=== PATIENT | female | born 1945 | race Caucasian/White ===

== ENCOUNTER 2018-04-09 12:21 | Emergency (ER) | payer MEDICARE ==
[~2018-04-09] VITALS: Ht 154.9 cm; Wt 42.6 kg
[~2018-04-09 12:21] MED LIST: ALEVE220 M1 PO; ASA81 MG; ASPIR 8181 MG PO; COLACE100 M1 PO; CRESTOR10 MG PO; FLAGYL500 MG PO; KEFLEX500 MG PO; LEVOTHYROXINE50 MCG PO; METOPROLOL TAR100 MG PO; MILK OF MA400 MG/5 M PO; MULTI-VITAMIN1 EACH PO; NEURONTIN100 MG PO; PEPCID20 MG PO; PLAVIX75 MG PO; PREDNISONE20 MG PO; SENOKOT8.6 MG PO; ULTRAM50 MG PO; Z.0.METOPROLOL SUCC5; Z.0.NEURONTIN300 MG; Z.0.PLAVIX75 MG
[2018-04-09] MEDS ORDERED: ASPIRIN 81 MG CHEW TAB PO ONE (12:45)
[2018-04-09 12:58] LABS: BASOPHILS # (AUTO) 0.1 (0.0-0.1); BASOPHILS % 1.4 % (0.0-1.0); EOSINOPHILS # (AUTO) 0.1 (0.0-0.4); EOSINOPHILS % 1.9 % (0.0-6.0); HEMATOCRIT 28.9 % (34.2-44.1); HEMOGLOBIN 9.6 g/dL (12.0-16.0); LYMPHOCYTES # (AUTO) 1.1 (1.0-3.2); LYMPHOCYTES % 14.4 % (18.0-39.1); MEAN CORPUSCULAR HEMOGLOBIN 27.9 pg (28-32); MEAN CORPUSCULAR HGB CONC 33.2 g/dL (31-35); MONOCYTES # (AUTO) 0.9 (0.2-0.8); MONOCYTES % 11.8 % (4.4-11.3); NEUTROPHILS # (AUTO) 5.1 (2.1-6.9); PLATELET COUNT 186 x10e3/uL (140-360); RED BLOOD COUNT 3.44 x10e6/uL (3.6-5.1); RED CELL DISTRIBUTION WIDTH 18.6 % (11.7-14.4)
[2018-04-09 13:08] LABS: INR 1.11; PROTHROMBIN TIME 13.5 seconds (11.9-14.5)
[2018-04-09 13:09] LABS: PARTIAL THROMBOPLASTIN TIME 31.8 seconds (23.8-35.5)
[2018-04-09] MEDS ORDERED: ONDANSETRON HCL INJ 2 MG/ML VIAL IV STA (13:10)
[2018-04-09] MEDS ORDERED: MORPHINE SULFATE 2 MG/ML SYR IV STA (13:10)
[2018-04-09 13:16] LABS: ALANINE AMINOTRANSFERASE 28 IU/L (0-55); ALBUMIN 4.2 g/dL (3.5-5.0); ALBUMIN/GLOBULIN RATIO 1.3 (0.8-2.0); ALKALINE PHOSPHATASE 122 IU/L (40-150); ANION GAP 17.3 mmol/L (8-16); BLOOD UREA NITROGEN 5 mg/dL (7-26); BUN/CREATININE RATIO 9 (6-25); CALCIUM 9.2 mg/dL (8.4-10.2); CARBON DIOXIDE 31 mmol/L (22-29); CHLORIDE 89 mmol/L (98-107); CREATINE KINASE 96 IU/L (29-168); CREATININE, SERUM 0.55 mg/dL (0.57-1.11); EST GLOMERULAR FILTRATION RATE > 60 ML/MIN (60-); GLUCOSE 78 mg/dL (74-118); POTASSIUM 3.3 mmol/L (3.5-5.1); SODIUM 134 mmol/L (136-145)
[2018-04-09 13:24] LABS: BILIRUBIN,URINE NEGATIVE (NEGATIVE); CLARITY,URINE CLEAR (CLEAR); COLOR,URINE YELLOW (YELLOW); KETONES,URINE NEGATIVE (NEGATIVE); LEUKOCYTE ESTERASE ,URINE NEGATIVE (NEGATIVE); NITRITE,URINE NEGATIVE (NEGATIVE); PROTEIN,URINE DIPSTICK NEGATIVE (NEGATIVE); URINE UROBILINOGEN 1 mg/dL (0.2 - 1)
[2018-04-09 13:37] LABS: EPITHELIAL CELLS,URINE RARE /LPF; TRANSITIONAL EPI CELLS,URINE RARE
[2018-04-09] MEDS ORDERED: POTASSIUM CHLORIDE 20 MEQ TAB CR PO ONE (14:15)
[2018-04-09 14:21] VITALS: BP 102/84
== END 2018-04-09 14:30 | disposition home or self-care (01) ==
LOC: ER 12:21
DX: E87.6 Hypokalemia (principal); K52.9 Noninfective gastroenteritis and colitis, unspecified; Z79.82 Long term (current) use of aspirin
CPT/HCPCS: 36415; 80053; 81001; 82550; 82553; 84484; 85025; 85610; 85730; 93005; 99283; J2270; J2405

== ENCOUNTER 2018-08-21 20:03 | Inpatient (IN) | payer MEDICARE ==
[~2018-08-21] VITALS: Ht 154.9 cm; Wt 46.7 kg
--- OUTSIDE RECORDS SUMMARY | 2018-08-21 20:06 | XMS REPORT | Clinical Summary ---
Author Author FREDERIC [employer] [email or web address] Address Unknown Phone Unavailable Care Team Providers Care Head Of Marketing Analytics Name Role Phone PCP Unavailable Allergies Active Allergy Reactions Severity Noted Date Comments Hydromorphone 06/09/2014 delirium Warfarin 08/13/2018 This diagnosis of Stroke is a prior history, remote! Current Medications Prescription Sig. Disp. Refills Start End Date Status Date gabapentin (NEURONTIN) Take 100 mg by mouth 3 Active 100 MG tablet (three) times daily . IRON/FA/B12/C/DOCUSATE Take by mouth daily. Active SODIUM (FERRAPLUS 90 ORAL) polyvinyl alcohol Place 1 drop into both Active (LIQUIFILM TEARS) 1.4 % eyes 3 (three) times ophthalmic daily. solutionIndications: Dry Eye [id number]-[id number]-[id number]-lute Take by mouth. Active in (CENTRUM SILVER WOMEN) 8 mg iron-400 mcg-300 mcg Tab pantoprazole (PROTONIX) Take 40 mg by mouth Active 40 MG tablet daily. nicotine (NICODERM CQ) 21 Place 1 patch onto the Active mg/24 hr patch skin daily. clopidogrel (PLAVIX) 75 Take 75 mg by mouth Active mg tablet daily. levothyroxine (SYNTHROID, Take 1 tablet (175 mcg 360 tablet 0 08/15/20 20 Active LEVOTHROID) 175 MCG total) by mouth Every 18 19 tablet morning on an empty stomach. atorvastatin (LIPITOR) 40 Take 1 tablet (40 mg 360 tablet 0 20 08/14/20 Active MG tablet total) by mouth daily. 18 19 losartan (COZAAR) 100 MG Take 1 tablet (100 mg 360 tablet 0 20 //20 Active tablet total) by mouth daily. 18 19 amiodarone (PACERONE) 200 Take 1 tablet (200 mg 180 tablet 0 08/14/20 08/14/20 Active MG tablet total) by mouth every 18 19 other day. aspirin 81 MG EC tablet Take 81 mg by mouth 08/14/20 Discontin daily. 18 ued levothyroxine (SYNTHROID, Take 100 mcg by mouth 08/14/20 Discontin LEVOTHROID) 25 MCG tablet daily . 18 ued magnesium oxide (MAG-OX) Take 400 mg by mouth 08/14/20 Discontin 400 mg tablet daily. 18 ued budesonide (PULMICORT) Take 2 mLs (0.25 mg 60 mL 0 01/11/20 01/11/20 0.25 mg/2 mL nebulizer total) by nebulization 2 17 18 solution (two) times daily. thiamine (VITAMIN B-1) 50 Take 1 tablet (50 mg 30 tablet 11 01/11/20 01/11/20 MG tablet total) by mouth daily. 17 18 traMADol (ULTRAM) 50 mg Take 50 mg by mouth every 08/14/20 Discontin tablet 6 (six) hours as needed 18 ued for Pain. clopidogrel (PLAVIX) 75 Take 1 tablet (75 mg 30 tablet 07/24/20 07/24/20 mg tablet total) by mouth daily. 17 18 amLODIPine (NORVASC) 2.5 Take 1 tablet (2.5 mg 30 tablet 07/24/20 07/24/20 MG tablet total) by mouth daily. 17 18 Active Problems Problem Noted Date Positive cardiac stress test 08/13/2018 Alcohol intoxication, with unspecified complication ([facility]) 01/05/2017 Hypoxia 01/05/2017 Cord compression ([facility]) 01/05/2017 Withdrawal symptoms, alcohol ([facility]) 01/05/2017 Dehiscence of operative wound, initial encounter 07/19/2016 CAD (coronary artery disease) 06/12/2016 Coronary artery disease involving autologous artery coronary bypass graft 06/12/2016 without angina pectoris Unstable angina (HCC) 06/07/2016 Carotid stenosis, right 06/07/2016 TIA (transient ischemic attack) 06/07/2016 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 last use of inhaler Hypothyroidism Overview: hypothyroid Encounters Date Type Specialty Care Team Description 08/13/2018 Hospital Cardiology Woody Larsen MD - Encounter 08/14/2018 08/13/2018 Orders Only Cardiology Woody Larsen MD 08/13/2018 Procedure Pass 08/13/2018 Surgery Woody Larsen MD L CATH & CORONARY ANGIOS after 08/20/2017 Immunizations Name Dates Previously Given Next Due Influenza TIV (IM) 06/27/2014 Pneumococcal Conjugate 06/27/2014 (Prevnar) 13-Valent Pneumococcal 01/06/2017 Polysaccharide (Pneumovax) Tdap 01/20/2015 Family History Medical History Relation Name Comments Bipolar disorder Mother Diabetes Mother Heart disease Mother Relation Name Status Comments Mother Social History Tobacco Use Types Packs/Day Years Used Date Current Every Day Smoker Cigarettes 1 55 Smokeless Tobacco: Never Used Tobacco Cessation: Ready to Quit: Yes; Counseling Given: Yes Comments: previously educated Alcohol Use Drinks/Week oz/Week Comments Yes 14 Glasses of 12.6 wine 7 Cans of beer Sex Assigned at Date Recorded Not on file Last Filed Vital Signs Vital Sign Reading Time Taken Blood Pressure 105/46 08/14/2018 7:30 AM CDT Pulse 74 08/14/2018 7:30 AM CDT Temperature 36.6 C (97.8 F) 08/14/2018 7:30 AM CDT Respiratory Rate 18 08/14/2018 7:30 AM CDT Oxygen Saturation 95% 08/14/2018 7:30 AM CDT Inhaled Oxygen - - Concentration Weight 49.5 kg (109 lb 3.5 oz) 08/14/2018 7:30 AM CDT Height 154.9 cm (5' 1") 08/13/2018 10:50 AM CDT Body Mass Index 20.64 08/14/2018 7:30 AM CDT Plan of Treatment Health Maintenance Due Date Last Done Comments INFLUENZA VACCINE 07/27/2018 Implants Implanted Type Area Agricultural Commodities Inspector Device Expiration Model / Identifier Date Serial / Lot Synergy Cardiovasc N/A: Heart [place] [id number] 04/12/2020 [id number] Implanted: Qty: 1 on 08/13/2018 by [employer] [id number] / Woody Larsen MD / [id number] Sealant,Floseal Hemostatic Matrix Cement/Gilberto Bilateral: [id number] 11/26/2015 [id number] / 10ml - [id number] ler/Adhesi Back BIOSCIENCE / Implanted: Qty: 1 on 10/28/2014 by ve FORMER FUSION [id number] Kings Xiong MD MEDICAL Promus Premier Stents-Cor N/A: [place] [id number] 09/07/2018 [id number] Implanted: Qty: 1 on 07/23/2017 by PANOSOL [id number] / Woody Larsen MD / [id number] Procedures Procedure Name Priority Date/Time Associated Diagnosis Comments L CATH & CORONARY ANGIOS 08/13/2018 Atherosclerosis of [place] 3:35 PM CDT coronary artery of [place] heart without angina pectoris Case Notes POP6 L CATH POSS1 P.M. START REQUESTED after 08/20/2017 Results * EKG-SCANNED (08/17/2018 1:23 PM) * CARDIAC CATH REPORT - SCAN (08/17/2018 1:23 PM) * VASCULAR DIAGRAM -SCAN (08/17/2018 1:23 PM) * RHYTHM STRIP - SCAN (08/17/2018 1:23 PM) * CBC (Hemogram only) (08/14/2018 4:17 AM) Component Value Ref Range WBC 10.8 (H) 3.5 - 10.5 K/L RBC 2.80 (L) 3.93 - 5.22 M/L Hemoglobin 8.2 (L) 11.2 - 15.7 GM/DL Hematocrit 25.1 (L) 34.1 - 44.9 % MCV 89.6 79.4 - 94.8 fL MCH 29.3 25.6 - 32.2 pg MCHC 32.7 32.2 - 35.5 GM/DL RDW 18.4 (H) 11.7 - 14.4 % Platelets 177 150 - 450 K/CU MM MPV 10.7 9.4 - 12.3 fL nRBC 0 0 - 0 /100 WBC Specimen Performing Laboratory Blood [facility] [id number] * Basic metabolic panel (08/14/2018 4:17 AM) Component Value Ref Range Sodium 132 (L) 136 - 145 meq/L Potassium 3.0 (L) 3.5 - 5.1 meq/L Chloride 99 98 - 107 meq/L CO2 22 22 - 29 meq/L BUN 6 (L) 7 - 21 mg/dL Creatinine 0.58 0.57 - 1.25 mg/dL Glucose 86 70 - 105 mg/dL Calcium 8.1 (L) 8.4 - 10.2 mg/dL EGFR 102Comment: ESTIMATED GFR IS NOT ACCURATE mL/min/1.73 sq m CREATININE CLEARANCE IN PREDICTING GLOMERULAR FILTRATION RATE. ESTIMATED GFR IS NOT APPLICABLE FOR DIALYSIS PATIENTS. Specimen Performing Laboratory Blood [address] [id number] * POC ACTIVATED CLOTTING TIME (08/13/2018 11:10 PM) Only the most recent of 4 results within the time period is included. Component Value Ref Range Activated Clotting Time 136Comment: TESTED AT [address] [address] Specimen Performing Laboratory Blood [address] [address] after 08/20/2017
--- OUTSIDE RECORDS SUMMARY | 2018-08-21 20:06 | XMS REPORT ---
Author Author [facility] Address Unknown Phone Unavailable Care Team Providers Care Hat Binder Name Role Phone Juan FUENTES Unavailable Unavailable Paige RICE Unavailable Unavailable CECI CASTRO Unavailable Unavailable FLYNN DAMON Unavailable Unavailable Problems This patient has no known problems. Allergies, Adverse Reactions, Alerts This patient has no known allergies or adverse reactions. Medications This patient has no known medications. Results Test Description Test Time Test Comments Text Results Atomic Results Result Comments BASIC METABOLIC PANEL 2018-08-14 05:02:00 SODIUM (BEAKER) (test kfab=900) 132 meq/L 136-145 POTASSIUM (BEAKER) (test vhfe=425) 3.0 meq/L 3.5-5.1 CHLORIDE (BEAKER) (test tvdr=498) 99 meq/L 98-107 CO2 (BEAKER) (test oniv=719) 22 meq/L 22-29 BLOOD UREA NITROGEN (BEAKER) (test svzi=464) 6 mg/dL 7-21 CREATININE (BEAKER) (test crhb=983) 0.58 mg/dL 0.57-1.25 GLUCOSE RANDOM (BEAKER) (test dwkw=798) 86 mg/dL 70-105 CALCIUM (BEAKER) (test vnvv=766) 8.1 mg/dL 8.4-10.2 EGFR (BEAKER) (test qjjd=6574) 102 mL/min/1.73 sq m ESTIMATED GFR IS NOT ACCURATE CREATININE CLEARANCE IN PREDICTING GLOMERULAR FILTRATION RATE. ESTIMATED GFR IS NOT APPLICABLE FOR DIALYSIS PATIENTS. CBC (HEMOGRAM ONLY)2018-08-14 04:41:00* Test Item Value Reference Range Comments WHITE BLOOD CELL COUNT (BEAKER) (test hygm=108) 10.8 K/ L 3.5-10.5 RED BLOOD CELL COUNT (BEAKER) (test amaq=690) 2.80 M/ L 3.93-5.22 HEMOGLOBIN (BEAKER) (test uztx=405) 8.2 GM/DL 11.2-15.7 HEMATOCRIT (BEAKER) (test wgnr=603) 25.1 % 34.1-44.9 MEAN CORPUSCULAR VOLUME (BEAKER) (test nsor=188) 89.6 fL 79.4-94.8 MEAN CORPUSCULAR HEMOGLOBIN (BEAKER) (test dven=241) 29.3 pg 25.6-32.2 MEAN CORPUSCULAR HEMOGLOBIN CONC (BEAKER) (test isho=597) 32.7 GM/DL 32.2-35.5 RED CELL DISTRIBUTION WIDTH (BEAKER) (test ovsf=549) 18.4 % 11.7-14.4 PLATELET COUNT (BEAKER) (test gcrg=658) 177 K/CU MM 150-450 MEAN PLATELET VOLUME (BEAKER) (test buar=451) 10.7 fL 9.4-12.3 NUCLEATED RED BLOOD CELLS (BEAKER) (test zmvb=639) 0 /100 WBC 0-0 [id number] 23:16:00* Test Item Value Reference Range Comments ACTIVATED CLOTTING TIME (BEAKER) (test qdgx=336) 136 sec TESTED AT [place] [address] [id number] 22:09:00* Test Item Value Reference Range Comments ACTIVATED CLOTTING TIME (BEAKER) (test ibej=934) 153 sec TESTED AT [place] [id number] 20:54:00* Test Item Value Reference Range Comments ACTIVATED CLOTTING TIME (BEAKER) (test pklo=619) 158 sec TESTED AT [place] [id number] 15:59:00* Test Item Value Reference Range Comments ACTIVATED CLOTTING TIME (BEAKER) (test kssm=824) 252 sec TESTED AT [place] [id number] CT, [id number] 18:20:00Reason for exam:->ABDOMINAL PAIN, RLQ abd pain and pelvis painReason for exam:->recent cardiac cath with entry on R groin.What is the patient's sedation requirement?->No SedationFINAL REPORT DOSE REDUCTION: The examination was performed according to departmental dose-optimization program which includes automated exposure control, adjustment of the mA and/or kV according to patient size and/or use of iterative reconstruction technique. TECHNIQUE: CT of the abdomen and pelvis with intravenous contrast. COMPARISON: CT of the pelvis, 01/05/2017 Discussion: Lung bases are clear. There is diffusely decreased liver density suggestive of fatty infiltration. Punctate liver and splenic calcifications are seen. There is a vascular focus in the left hepatic lobe measuring about 12 mm. This may rep resent a small vascular shunt or other benign entity. Spleen and adrenal glands appear unremarkable. The gallbladder and biliary tree are unremarkable. Both kid neys appear unremarkable. Duplicated right renal collecting system noted. There is colonic diverticulosis. No findings of diverticulitis. Moderate amount of sto ol throughout the colon seen. The appendix is not well visualized. However there is no inflammatory stranding or fluid collection in the right lower quadrant to suggest the presence of appendicitis. There is a small amount of pelvic free fluid. No organized fluid collections or abscess. No gross hematoma. Extensive v ascular calcifications are seen. Aorta and IVC are normal in caliber. No signifi cant lymphadenopathy. Mild stranding in the groin regions noted, nonspecific. No groin hematomas. IMPRESSION: 1. No definite acute abnormality in the abdomen and pelvis. 2. Moderate amount of stool throughout the colon. Scattered colonic di verticula without findings of diverticulitis. 3. Trace pelvic free fluid. 4. Ext ensive vascular calcifications. 5. Nonspecific vascular focus in the left hepati c lobe most likely benign. This could be assessed with nonemergent liver protoco l MRI. Signed: Messi Richard MDReport Verified Date/Time: 07/30/2017 18:20:15 Alma salgado Location: [facility] [id number] Consult Reading Room ALYSIS W/ [id number] 15:39:00* Test Item Value Reference Range Comments COLOR (BEAKER) (test ffhj=967) Light Yellow CLARITY (BEAKER) (test beqq=268) Clear SPECIFIC GRAVITY UA (BEAKER) (test jwjf=900) 1.002 1.001-1.035 PH UA (BEAKER) (test tcms=667) 7.0 5.0-8.0 PROTEIN UA (BEAKER) (test fzwo=350) Negative Negative GLUCOSE UA (BEAKER) (test bkdz=474) Negative Negative KETONES UA (BEAKER) (test cxij=389) Negative Negative BILIRUBIN UA (BEAKER) (test zwec=233) Negative Negative BLOOD UA (BEAKER) (test rpac=740) Negative Negative NITRITE UA (BEAKER) (test lqck=484) Negative Negative LEUKOCYTE ESTERASE UA (BEAKER) (test oebe=931) Negative Negative UROBILINOGEN UA (BEAKER) (test ikuf=549) 0.2 mg/dL 0.2-1.0 RBC UA (BEAKER) (test unmz=966) < /HPF WBC UA (BEAKER) (test ahmf=865) < /HPF SOURCE(BEAKER) (test xven=6482) CREATINE KINASE (CK), TOTAL AND [id number] 15:24:00* Test Item Value Reference Range Comments CREATINE KINASE TOTAL (BEAKER) (test oyxr=572) 45 U/L 29-200 CREATINE KINASE-MB (BEAKER) (test izzy=846) 1.7 ng/mL 0.0-6.6 CREATINE KINASE-MB INDEX (BEAKER) (test mylf=927) 3.8 % CK-MB Reference Range:<6.7 Normal6.7-10.0 Borderline>10.0 Abnormal TROPONIN [id number] 15:24:00* Test Item Value Reference Range Comments TROPONIN I (BEAKER) (test sfkv=719) 0.01 ng/mL 0.00-0.03 Troponin I (TnI) levels must be interpreted in the context of the presenting sym ptoms and the clinical findings. Elevated TnI levels indicate myocardial damage, but are not specific for ischemic heart disease. Elevated TnI levels are seen in patients with other cardiac conditions (including myocarditis and congestive h eart failure), and slight TnI elevations occur in patients with other conditions , including sepsis, renal failure, acidosis, acute neurological disease, and per sistent tachyarrhythmia.[id number] 15:17:00* Test Item Value Reference Range Comments LIPASE (BEAKER) (test zztl=907) 5 U/L 8-78 BASIC METABOLIC [id number] 15:17:00* Test Item Value Reference Range Comments SODIUM (BEAKER) (test qida=308) 135 meq/L 136-145 POTASSIUM (BEAKER) (test beao=082) 3.2 meq/L 3.5-5.1 CHLORIDE (BEAKER) (test zxqo=925) 97 meq/L 98-107 CO2 (BEAKER) (test ermj=272) 27 meq/L 22-29 BLOOD UREA NITROGEN (BEAKER) (test oifs=480) 4 mg/dL 7-21 CREATININE (BEAKER) (test vjek=275) 0.51 mg/dL 0.57-1.25 GLUCOSE RANDOM (BEAKER) (test ojek=901) 72 mg/dL 70-105 CALCIUM (BEAKER) (test sjev=617) 8.6 mg/dL 8.4-10.2 EGFR (BEAKER) (test orcf=7888) 118 mL/min/1.73 sq m ESTIMATED GFR IS NOT ACCURATE CREATININE CLEARANCE IN PREDICTING GLOMERULAR FILTRATION RATE. ESTIMATED GFR IS NOT APPLICABLE FOR DIALYSIS PATIENTS. HEPATIC FUNCTION [id number] 15:17:00* Test Item Value Reference Range Comments TOTAL PROTEIN (BEAKER) (test rfib=808) 6.5 gm/dL 6.0-8.3 ALBUMIN (BEAKER) (test vjbg=7972) 3.7 g/dL 3.5-5.0 BILIRUBIN TOTAL (BEAKER) (test bkok=865) 0.6 mg/dL 0.2-1.2 BILIRUBIN DIRECT (BEAKER) (test xhll=680) 0.4 mg/dL 0.1-0.5 ALKALINE PHOSPHATASE (BEAKER) (test stsh=904) 120 U/L 40-150 AST (SGOT) (BEAKER) (test kqok=709) 56 U/L 5-34 ALT (SGPT) (BEAKER) (test asie=141) 21 U/L 6-55 CBC W/PLT COUNT & AUTO [id number] 15:00:00* Test Item Value Reference Range Comments WHITE BLOOD CELL COUNT (BEAKER) (test lnin=649) 3.6 K/ L 3.5-10.5 RED BLOOD CELL COUNT (BEAKER) (test fogx=414) 3.39 M/ L 3.93-5.22 HEMOGLOBIN (BEAKER) (test pajv=944) 10.9 GM/DL 11.2-15.7 HEMATOCRIT (BEAKER) (test ifhx=220) 32.4 % 34.1-44.9 MEAN CORPUSCULAR VOLUME (BEAKER) (test yfwd=453) 95.6 fL 79.4-94.8 MEAN CORPUSCULAR HEMOGLOBIN (BEAKER) (test ecdi=900) 32.2 pg 25.6-32.2 MEAN CORPUSCULAR HEMOGLOBIN CONC (BEAKER) (test fzku=300) 33.6 GM/DL 32.2-35.5 RED CELL DISTRIBUTION WIDTH (BEAKER) (test xoqw=160) 15.2 % 11.7-14.4 PLATELET COUNT (BEAKER) (test rxcm=776) 196 K/CU MM 150-450 MEAN PLATELET VOLUME (BEAKER) (test utxm=830) 10.2 fL 9.4-12.3 NUCLEATED RED BLOOD CELLS (BEAKER) (test uvgt=586) 0 /100 WBC 0-0 NEUTROPHILS RELATIVE PERCENT (BEAKER) (test hjig=206) 65 % LYMPHOCYTES RELATIVE PERCENT (BEAKER) (test cbpa=746) 18 % MONOCYTES RELATIVE PERCENT (BEAKER) (test ymxx=990) 11 % EOSINOPHILS RELATIVE PERCENT (BEAKER) (test dera=736) 4 % BASOPHILS RELATIVE PERCENT (BEAKER) (test bncx=643) 1 % NEUTROPHILS ABSOLUTE COUNT (BEAKER) (test goba=776) 2.35 K/ L 1.56-6.13 LYMPHOCYTES ABSOLUTE COUNT (BEAKER) (test vmga=081) 0.66 K/ L 1.18-3.74 MONOCYTES ABSOLUTE COUNT (BEAKER) (test hafp=605) 0.41 K/ L 0.24-0.36 EOSINOPHILS ABSOLUTE COUNT (BEAKER) (test ryeu=745) 0.13 K/ L 0.04-0.36 BASOPHILS ABSOLUTE COUNT (BEAKER) (test phfs=299) 0.04 K/ L 0.01-0.08 IMMATURE GRANULOCYTES-RELATIVE PERCENT (BEAKER) (test moig=1263) 0 % 0-1 CBC W/PLT COUNT & AUTO [id number] 11:08:00* Test Item Value Reference Range Comments WHITE BLOOD CELL COUNT (BEAKER) (test task=408) 5.2 K/ L 3.5-10.5 RED BLOOD CELL COUNT (BEAKER) (test ycfx=465) 3.50 M/ L 3.93-5.22 HEMOGLOBIN (BEAKER) (test ncey=131) 11.3 GM/DL 11.2-15.7 HEMATOCRIT (BEAKER) (test lygv=261) 34.5 % 34.1-44.9 MEAN CORPUSCULAR VOLUME (BEAKER) (test ruag=966) 98.6 fL 79.4-94.8 MEAN CORPUSCULAR HEMOGLOBIN (BEAKER) (test mrss=015) 32.3 pg 25.6-32.2 MEAN CORPUSCULAR HEMOGLOBIN CONC (BEAKER) (test wjyb=646) 32.8 GM/DL 32.2-35.5 RED CELL DISTRIBUTION WIDTH (BEAKER) (test nwdd=432) 15.2 % 11.7-14.4 PLATELET COUNT (BEAKER) (test xhbj=552) 126 K/CU MM 150-450 MEAN PLATELET VOLUME (BEAKER) (test ytxs=410) 11.0 fL 9.4-12.3 NUCLEATED RED BLOOD CELLS (BEAKER) (test ytsi=145) 0 /100 WBC 0-0 NEUTROPHILS RELATIVE PERCENT (BEAKER) (test iuno=112) 74 % LYMPHOCYTES RELATIVE PERCENT (BEAKER) (test ripl=577) 13 % MONOCYTES RELATIVE PERCENT (BEAKER) (test pyck=292) 9 % EOSINOPHILS RELATIVE PERCENT (BEAKER) (test opbd=609) 4 % BASOPHILS RELATIVE PERCENT (BEAKER) (test esaa=931) 0 % NEUTROPHILS ABSOLUTE COUNT (BEAKER) (test yniu=188) 3.83 K/ L 1.56-6.13 LYMPHOCYTES ABSOLUTE COUNT (BEAKER) (test htig=246) 0.69 K/ L 1.18-3.74 MONOCYTES ABSOLUTE COUNT (BEAKER) (test ofia=107) 0.44 K/ L 0.24-0.36 EOSINOPHILS ABSOLUTE COUNT (BEAKER) (test kpmd=720) 0.18 K/ L 0.04-0.36 BASOPHILS ABSOLUTE COUNT (BEAKER) (test nmtw=009) 0.02 K/ L 0.01-0.08 IMMATURE GRANULOCYTES-RELATIVE PERCENT (BEAKER) (test swyy=2941) 0 % 0-1 [id number] 04:28:00* Test Item Value Reference Range Comments PHOSPHORUS (BEAKER) (test pupi=776) 2.5 mg/dL 2.3-4.7 [id number] 04:28:00* Test Item Value Reference Range Comments MAGNESIUM (BEAKER) (test pakl=016) 1.8 mg/dL 1.6-2.6 BASIC METABOLIC [id number] 04:28:00* Test Item Value Reference Range Comments SODIUM (BEAKER) (test vydz=033) 133 meq/L 136-145 POTASSIUM (BEAKER) (test ksww=959) 4.4 meq/L 3.5-5.1 CHLORIDE (BEAKER) (test lpgr=959) 95 meq/L 98-107 CO2 (BEAKER) (test obcz=565) 31 meq/L 22-29 BLOOD UREA NITROGEN (BEAKER) (test wdoo=575) 4 mg/dL 7-21 CREATININE (BEAKER) (test macq=200) 0.51 mg/dL 0.57-1.25 GLUCOSE RANDOM (BEAKER) (test ehfe=833) 76 mg/dL 70-105 CALCIUM (BEAKER) (test xfma=091) 8.4 mg/dL 8.4-10.2 EGFR (BEAKER) (test aqet=5217) 118 mL/min/1.73 sq m ESTIMATED GFR IS NOT ACCURATE CREATININE CLEARANCE IN PREDICTING GLOMERULAR FILTRATION RATE. ESTIMATED GFR IS NOT APPLICABLE FOR DIALYSIS PATIENTS. [id number] 17:36:00* Test Item Value Reference Range Comments ACTIVATED CLOTTING TIME (BEAKER) (test kxhn=004) [address] [facility] [address] [facility] [address] [id number] 05:49:00* Test Item Value Reference Range Comments PHOSPHORUS (BEAKER) (test ybaj=700) 3.7 mg/dL 2.3-4.7 [id number] 05:49:00* Test Item Value Reference Range Comments MAGNESIUM (BEAKER) (test cwts=905) 1.3 mg/dL 1.6-2.6 BASIC METABOLIC [id number] 05:49:00* Test Item Value Reference Range Comments SODIUM (BEAKER) (test bxjt=129) 133 meq/L 136-145 POTASSIUM (BEAKER) (test agpu=391) 3.3 meq/L 3.5-5.1 CHLORIDE (BEAKER) (test wjdz=688) 92 meq/L 98-107 CO2 (BEAKER) (test mpql=309) 32 meq/L 22-29 BLOOD UREA NITROGEN (BEAKER) (test efsr=052) 4 mg/dL 7-21 CREATININE (BEAKER) (test pfca=947) 0.47 mg/dL 0.57-1.25 GLUCOSE RANDOM (BEAKER) (test acqt=423) 69 mg/dL 70-105 CALCIUM (BEAKER) (test rpzr=418) 8.0 mg/dL 8.4-10.2 EGFR (BEAKER) (test nzox=7582) 130 mL/min/1.73 sq m ESTIMATED GFR IS NOT ACCURATE CREATININE CLEARANCE IN PREDICTING GLOMERULAR FILTRATION RATE. ESTIMATED GFR IS NOT APPLICABLE FOR DIALYSIS PATIENTS. CBC W/PLT COUNT & AUTO [id number] 05:23:00* Test Item Value Reference Range Comments WHITE BLOOD CELL COUNT (BEAKER) (test ipbt=871) 4.4 K/ L 3.5-10.5 RED BLOOD CELL COUNT (BEAKER) (test rlvr=722) 3.39 M/ L 3.93-5.22 HEMOGLOBIN (BEAKER) (test akac=154) 10.9 GM/DL 11.2-15.7 HEMATOCRIT (BEAKER) (test ickk=353) 32.4 % 34.1-44.9 MEAN CORPUSCULAR VOLUME (BEAKER) (test eele=512) 95.6 fL 79.4-94.8 MEAN CORPUSCULAR HEMOGLOBIN (BEAKER) (test gjze=427) 32.2 pg 25.6-32.2 MEAN CORPUSCULAR HEMOGLOBIN CONC (BEAKER) (test mqki=821) 33.6 GM/DL 32.2-35.5 RED CELL DISTRIBUTION WIDTH (BEAKER) (test sumi=525) 15.1 % 11.7-14.4 PLATELET COUNT (BEAKER) (test otxi=208) 122 K/CU MM 150-450 MEAN PLATELET VOLUME (BEAKER) (test zpvc=418) 9.9 fL 9.4-12.3 NUCLEATED RED BLOOD CELLS (BEAKER) (test ruhf=754) 0 /100 WBC 0-0 NEUTROPHILS RELATIVE PERCENT (BEAKER) (test nnxn=876) 72 % LYMPHOCYTES RELATIVE PERCENT (BEAKER) (test falq=628) 12 % MONOCYTES RELATIVE PERCENT (BEAKER) (test qmgo=375) 10 % EOSINOPHILS RELATIVE PERCENT (BEAKER) (test rugw=160) 5 % BASOPHILS RELATIVE PERCENT (BEAKER) (test edjb=044) 1 % NEUTROPHILS ABSOLUTE COUNT (BEAKER) (test ticd=039) 3.17 K/ L 1.56-6.13 LYMPHOCYTES ABSOLUTE COUNT (BEAKER) (test kjqq=838) 0.51 K/ L 1.18-3.74 MONOCYTES ABSOLUTE COUNT (BEAKER) (test sbhs=769) 0.44 K/ L 0.24-0.36 EOSINOPHILS ABSOLUTE COUNT (BEAKER) (test wodw=584) 0.20 K/ L 0.04-0.36 BASOPHILS ABSOLUTE COUNT (BEAKER) (test ipeu=032) 0.02 K/ L 0.01-0.08 IMMATURE GRANULOCYTES-RELATIVE PERCENT (BEAKER) (test cciy=9348) 1 % 0-1 CSF CULTURE + GRAM [id number] 01:17:00* Test Item Value Reference Range Comments CULTURE (BEAKER) (test soun=6874) No growth GRAM STAIN RESULT (BEAKER) (test avqd=7282) <1+ WBCs GRAM STAIN RESULT (BEAKER) (test xqaz=00619) No organisms seen BASIC METABOLIC [id number] 06:45:00* Test Item Value Reference Range Comments SODIUM (BEAKER) (test yvgg=323) 131 meq/L 136-145 POTASSIUM (BEAKER) (test pmqe=831) 3.7 meq/L 3.5-5.1 CHLORIDE (BEAKER) (test bddq=879) 98 meq/L 98-107 CO2 (BEAKER) (test zjyk=740) 22 meq/L 22-29 BLOOD UREA NITROGEN (BEAKER) (test fhic=673) 6 mg/dL 7-21 CREATININE (BEAKER) (test ymmo=654) 0.52 mg/dL 0.57-1.25 GLUCOSE RANDOM (BEAKER) (test owrt=203) 84 mg/dL 70-105 CALCIUM (BEAKER) (test gtlf=584) 8.4 mg/dL 8.4-10.2 EGFR (BEAKER) (test akwg=3877) 116 mL/min/1.73 sq m ESTIMATED GFR IS NOT ACCURATE CREATININE CLEARANCE IN PREDICTING GLOMERULAR FILTRATION RATE. ESTIMATED GFR IS NOT APPLICABLE FOR DIALYSIS PATIENTS. CBC W/PLT COUNT & AUTO [id number] 05:26:00* Test Item Value Reference Range Comments WHITE BLOOD CELL COUNT (BEAKER) (test rbuf=685) 7.8 K/ L 4.0-10.0 RED BLOOD CELL COUNT (BEAKER) (test wvte=614) 3.48 M/ L 4.00-5.00 HEMOGLOBIN (BEAKER) (test bnre=979) 12.6 GM/DL 12.0-15.0 HEMATOCRIT (BEAKER) (test kqvf=217) 36.0 % 36.0-45.0 MEAN CORPUSCULAR VOLUME (BEAKER) (test bnvf=847) 103.0 fL 82.0-99.0 MEAN CORPUSCULAR HEMOGLOBIN (BEAKER) (test gpsm=981) 36.1 pg 27.0-33.0 MEAN CORPUSCULAR HEMOGLOBIN CONC (BEAKER) (test tpxe=272) 34.9 GM/DL 32.0-36.0 RED CELL DISTRIBUTION WIDTH (BEAKER) (test bsbl=580) 13.6 % 10.3-14.2 PLATELET COUNT (BEAKER) (test jqqw=234) 161 K/CU MM 150-430 MEAN PLATELET VOLUME (BEAKER) (test zylc=005) 7.3 fL 6.5-10.5 NUCLEATED RED BLOOD CELLS (BEAKER) (test nvfw=398) 0 /100 WBC 0-0 NEUTROPHILS RELATIVE PERCENT (BEAKER) (test jomu=762) 80 % LYMPHOCYTES RELATIVE PERCENT (BEAKER) (test zkaf=512) 8 % MONOCYTES RELATIVE PERCENT (BEAKER) (test lltl=021) 11 % EOSINOPHILS RELATIVE PERCENT (BEAKER) (test rjxx=257) 1 % BASOPHILS RELATIVE PERCENT (BEAKER) (test iamx=024) 0 % NEUTROPHILS ABSOLUTE COUNT (BEAKER) (test evbc=352) 6.27 K/ L 1.80-8.00 LYMPHOCYTES ABSOLUTE COUNT (BEAKER) (test ntts=509) 0.62 K/ L 1.48-4.50 MONOCYTES ABSOLUTE COUNT (BEAKER) (test sbmz=024) 0.85 K/ L 0.00-1.30 EOSINOPHILS ABSOLUTE COUNT (BEAKER) (test oxkf=218) 0.06 K/ L 0.00-0.50 BASOPHILS ABSOLUTE COUNT (BEAKER) (test cqcq=925) 0.01 K/ L 0.00-0.20 0.00BASIC METABOLIC [id number] 05:31:00* Test Item Value Reference Range Comments SODIUM (BEAKER) (test cvpf=697) 134 meq/L 136-145 POTASSIUM (BEAKER) (test mjtb=713) 3.8 meq/L 3.5-5.1 CHLORIDE (BEAKER) (test yvui=177) 103 meq/L 98-107 CO2 (BEAKER) (test gquf=547) 21 meq/L 22-29 BLOOD UREA NITROGEN (BEAKER) (test yono=625) 5 mg/dL 7-21 CREATININE (BEAKER) (test rlul=709) 0.54 mg/dL 0.57-1.25 GLUCOSE RANDOM (BEAKER) (test xoex=047) 84 mg/dL 70-105 CALCIUM (BEAKER) (test rbva=622) 8.5 mg/dL 8.4-10.2 EGFR (BEAKER) (test bwiw=5191) 111 mL/min/1.73 sq m ESTIMATED GFR IS NOT ACCURATE CREATININE CLEARANCE IN PREDICTING GLOMERULAR FILTRATION RATE. ESTIMATED GFR IS NOT APPLICABLE FOR DIALYSIS PATIENTS. CBC W/PLT COUNT & AUTO [id number] 05:05:00* Test Item Value Reference Range Comments WHITE BLOOD CELL COUNT (BEAKER) (test yasj=859) 9.6 K/ L 4.0-10.0 RED BLOOD CELL COUNT (BEAKER) (test nowj=559) 3.48 M/ L 4.00-5.00 HEMOGLOBIN (BEAKER) (test axhh=072) 12.3 GM/DL 12.0-15.0 HEMATOCRIT (BEAKER) (test dogo=608) 36.8 % 36.0-45.0 MEAN CORPUSCULAR VOLUME (BEAKER) (test vkbb=677) 106.0 fL 82.0-99.0 MEAN CORPUSCULAR HEMOGLOBIN (BEAKER) (test rkdc=461) 35.3 pg 27.0-33.0 MEAN CORPUSCULAR HEMOGLOBIN CONC (BEAKER) (test gahh=767) 33.4 GM/DL 32.0-36.0 RED CELL DISTRIBUTION WIDTH (BEAKER) (test yhwx=147) 12.3 % 10.3-14.2 PLATELET COUNT (BEAKER) (test pvgx=300) 179 K/CU MM 150-430 MEAN PLATELET VOLUME (BEAKER) (test vtuz=110) 7.3 fL 6.5-10.5 NUCLEATED RED BLOOD CELLS (BEAKER) (test lpgb=669) 0 /100 WBC 0-0 NEUTROPHILS RELATIVE PERCENT (BEAKER) (test nsng=171) 82 % LYMPHOCYTES RELATIVE PERCENT (BEAKER) (test pxlz=821) 7 % MONOCYTES RELATIVE PERCENT (BEAKER) (test kfao=292) 10 % EOSINOPHILS RELATIVE PERCENT (BEAKER) (test rmhs=966) 1 % BASOPHILS RELATIVE PERCENT (BEAKER) (test dliz=111) 0 % NEUTROPHILS ABSOLUTE COUNT (BEAKER) (test ltcf=544) 7.83 K/ L 1.80-8.00 LYMPHOCYTES ABSOLUTE COUNT (BEAKER) (test qsap=912) 0.70 K/ L 1.48-4.50 MONOCYTES ABSOLUTE COUNT (BEAKER) (test etht=298) 0.93 K/ L 0.00-1.30 EOSINOPHILS ABSOLUTE COUNT (BEAKER) (test yfac=727) 0.09 K/ L 0.00-0.50 BASOPHILS ABSOLUTE COUNT (BEAKER) (test utsz=040) 0.04 K/ L 0.00-0.20 0.00VDRL, [id number] 15:43:00* Test Item Value Reference Range Comments SYPHILIS VDRL QUANTITATION CSF (BEAKER) (test exci=640) Nonreactive Nonreactive CBC W/PLT COUNT & AUTO [id number] 07:05:00* Test Item Value Reference Range Comments WHITE BLOOD CELL COUNT (BEAKER) (test epli=041) 10.1 K/ L 4.0-10.0 RED BLOOD CELL COUNT (BEAKER) (test egza=653) 3.36 M/ L 4.00-5.00 HEMOGLOBIN (BEAKER) (test kbeo=178) 11.7 GM/DL 12.0-15.0 HEMATOCRIT (BEAKER) (test glor=227) 35.6 % 36.0-45.0 MEAN CORPUSCULAR VOLUME (BEAKER) (test unmn=150) 106.0 fL 82.0-99.0 MEAN CORPUSCULAR HEMOGLOBIN (BEAKER) (test wzev=526) 34.9 pg 27.0-33.0 MEAN CORPUSCULAR HEMOGLOBIN CONC (BEAKER) (test tebo=264) 33.0 GM/DL 32.0-36.0 RED CELL DISTRIBUTION WIDTH (BEAKER) (test gqmb=259) 12.3 % 10.3-14.2 PLATELET COUNT (BEAKER) (test jysw=054) 187 K/CU MM 150-430 MEAN PLATELET VOLUME (BEAKER) (test ethp=259) 7.2 fL 6.5-10.5 NUCLEATED RED BLOOD CELLS (BEAKER) (test rzja=107) 0 /100 WBC 0-0 NEUTROPHILS RELATIVE PERCENT (BEAKER) (test bxnh=313) 93 % LYMPHOCYTES RELATIVE PERCENT (BEAKER) (test awvc=665) 3 % MONOCYTES RELATIVE PERCENT (BEAKER) (test ztig=274) 4 % EOSINOPHILS RELATIVE PERCENT (BEAKER) (test tjkd=232) 0 % BASOPHILS RELATIVE PERCENT (BEAKER) (test hzos=695) 0 % NEUTROPHILS ABSOLUTE COUNT (BEAKER) (test thak=698) 9.42 K/ L 1.80-8.00 LYMPHOCYTES ABSOLUTE COUNT (BEAKER) (test jyxi=212) 0.31 K/ L 1.48-4.50 MONOCYTES ABSOLUTE COUNT (BEAKER) (test duoh=380) 0.36 K/ L 0.00-1.30 EOSINOPHILS ABSOLUTE COUNT (BEAKER) (test dvdo=806) 0.04 K/ L 0.00-0.50 BASOPHILS ABSOLUTE COUNT (BEAKER) (test kevb=455) 0.00 K/ L 0.00-0.20 0.00BASIC METABOLIC [id number] 06:05:00* Test Item Value Reference Range Comments SODIUM (BEAKER) (test kyes=481) 132 meq/L 136-145 POTASSIUM (BEAKER) (test rqnx=184) 4.4 meq/L 3.5-5.1 CHLORIDE (BEAKER) (test ditn=972) 100 meq/L 98-107 CO2 (BEAKER) (test seep=810) 21 meq/L 22-29 BLOOD UREA NITROGEN (BEAKER) (test lrbx=709) 4 mg/dL 7-21 CREATININE (BEAKER) (test zvho=933) 0.53 mg/dL 0.57-1.25 GLUCOSE RANDOM (BEAKER) (test gmrk=090) 142 mg/dL 70-105 CALCIUM (BEAKER) (test solo=407) 8.7 mg/dL 8.4-10.2 EGFR (BEAKER) (test vzbi=7681) 113 mL/min/1.73 sq m ESTIMATED GFR IS NOT ACCURATE CREATININE CLEARANCE IN PREDICTING GLOMERULAR FILTRATION RATE. ESTIMATED GFR IS NOT APPLICABLE FOR DIALYSIS PATIENTS. GLUCOSE, [id number] 14:44:00* Test Item Value Reference Range Comments GLUCOSE CSF (BEAKER) (test zpoy=907) 105 mg/dL 40-70 PROTEIN, [id number] 14:44:00* Test Item Value Reference Range Comments PROTEIN CSF (BEAKER) (test wsdc=099) 105 mg/dL 15-45 CSF CELL COUNT [id number] 14:33:00* Test Item Value Reference Range Comments APPEARANCE CSF (BEAKER) (test jqky=291) Clear Clear COLOR CSF (BEAKER) (test djzk=602) Colorless Colorless RBC CSF (BEAKER) (test ljwg=258) 0 /cu mm 0-5 WBC CSF (BEAKER) (test jsko=0401) 0 /cu mm <=5 RBCS FRESH (BEAKER) (test bxuv=9659) Not Applicable NUMBER OF CELLS DIFF'D (BEAKER) (test cyde=6531) 0 TUBE NUMBER CSF (BEAKER) (test qmss=8468) EDTA tube BASIC METABOLIC [id number] 06:09:00* Test Item Value Reference Range Comments SODIUM (BEAKER) (test hwkz=267) 135 meq/L 136-145 POTASSIUM (BEAKER) (test gnhz=393) 4.3 meq/L 3.5-5.1 CHLORIDE (BEAKER) (test qqru=669) 100 meq/L 98-107 CO2 (BEAKER) (test dhjr=338) 25 meq/L 22-29 BLOOD UREA NITROGEN (BEAKER) (test uacj=278) 4 mg/dL 7-21 CREATININE (BEAKER) (test wsxv=152) 0.55 mg/dL 0.57-1.25 GLUCOSE RANDOM (BEAKER) (test mtnm=138) 188 mg/dL 70-105 CALCIUM (BEAKER) (test acpc=847) 8.9 mg/dL 8.4-10.2 EGFR (BEAKER) (test jnav=0495) 109 mL/min/1.73 sq m ESTIMATED GFR IS NOT ACCURATE CREATININE CLEARANCE IN PREDICTING GLOMERULAR FILTRATION RATE. ESTIMATED GFR IS NOT APPLICABLE FOR DIALYSIS PATIENTS. PROTHROMBIN [id number] 05:24:00* Test Item Value Reference Range Comments PROTIME (BEAKER) (test dclh=381) 12.5 seconds 11.7-14.7 INR (BEAKER) (test jrfs=406) 0.9 <=5.9 RECOMMENDED COUMADIN/WARFARIN INR THERAPY RANGESSTANDARD DOSE: 2.0 - 3.0 Inclu corky: PROPHYLAXIS for venous thrombosis, systemic embolization; TREATMENT for daisy ous thrombosis and/or pulmonary embolus.HIGH RISK: Target INR is 2.5-3.5 for pat ients with mechanical heart valves.CBC W/PLT COUNT & AUTO [id number] 05:17:00* Test Item Value Reference Range Comments WHITE BLOOD CELL COUNT (BEAKER) (test inqq=966) 6.6 K/ L 4.0-10.0 RED BLOOD CELL COUNT (BEAKER) (test ndhz=819) 3.55 M/ L 4.00-5.00 HEMOGLOBIN (BEAKER) (test vlge=478) 12.0 GM/DL 12.0-15.0 HEMATOCRIT (BEAKER) (test kmwd=346) 37.8 % 36.0-45.0 MEAN CORPUSCULAR VOLUME (BEAKER) (test vywy=434) 106.0 fL 82.0-99.0 MEAN CORPUSCULAR HEMOGLOBIN (BEAKER) (test fbfn=792) 33.6 pg 27.0-33.0 MEAN CORPUSCULAR HEMOGLOBIN CONC (BEAKER) (test ocou=730) 31.7 GM/DL 32.0-36.0 RED CELL DISTRIBUTION WIDTH (BEAKER) (test axyu=098) 12.2 % 10.3-14.2 PLATELET COUNT (BEAKER) (test yihz=497) 208 K/CU MM 150-430 MEAN PLATELET VOLUME (BEAKER) (test gpwy=999) 6.5 fL 6.5-10.5 NUCLEATED RED BLOOD CELLS (BEAKER) (test dcgq=916) 0 /100 WBC 0-0 NEUTROPHILS RELATIVE PERCENT (BEAKER) (test rbyo=821) 92 % LYMPHOCYTES RELATIVE PERCENT (BEAKER) (test wgts=698) 4 % MONOCYTES RELATIVE PERCENT (BEAKER) (test udah=249) 3 % EOSINOPHILS RELATIVE PERCENT (BEAKER) (test jfrh=607) 1 % BASOPHILS RELATIVE PERCENT (BEAKER) (test rygi=246) 0 % NEUTROPHILS ABSOLUTE COUNT (BEAKER) (test fmwr=257) 6.03 K/ L 1.80-8.00 LYMPHOCYTES ABSOLUTE COUNT (BEAKER) (test whlw=543) 0.29 K/ L 1.48-4.50 MONOCYTES ABSOLUTE COUNT (BEAKER) (test hpnu=126) 0.22 K/ L 0.00-1.30 EOSINOPHILS ABSOLUTE COUNT (BEAKER) (test zxqo=707) 0.04 K/ L 0.00-0.50 BASOPHILS ABSOLUTE COUNT (BEAKER) (test daqq=995) 0.00 K/ L 0.00-0.20 0.00HEMOGLOBIN [id number] 09:46:00* Test Item Value Reference Range Comments HEMOGLOBIN A1C (BEAKER) (test voco=667) 5.0 % 4.3-6.1 BASIC METABOLIC [id number] 05:47:00* Test Item Value Reference Range Comments SODIUM (BEAKER) (test tpza=560) 133 meq/L 136-145 POTASSIUM (BEAKER) (test eunk=531) 3.2 meq/L 3.5-5.1 CHLORIDE (BEAKER) (test dfjs=294) 92 meq/L 98-107 CO2 (BEAKER) (test fhxy=354) 30 meq/L 22-29 BLOOD UREA NITROGEN (BEAKER) (test ixhi=236) 5 mg/dL 7-21 CREATININE (BEAKER) (test uibh=183) 0.50 mg/dL 0.57-1.25 GLUCOSE RANDOM (BEAKER) (test wehh=314) 88 mg/dL 70-105 CALCIUM (BEAKER) (test jmel=836) 8.6 mg/dL 8.4-10.2 EGFR (BEAKER) (test nrmj=3890) 121 mL/min/1.73 sq m ESTIMATED GFR IS NOT ACCURATE CREATININE CLEARANCE IN PREDICTING GLOMERULAR FILTRATION RATE. ESTIMATED GFR IS NOT APPLICABLE FOR DIALYSIS PATIENTS. CBC W/PLT COUNT & AUTO [id number] 05:43:00* Test Item Value Reference Range Comments WHITE BLOOD CELL COUNT (BEAKER) (test dcpl=177) 7.9 K/ L 4.0-10.0 RED BLOOD CELL COUNT (BEAKER) (test scyh=088) 3.35 M/ L 4.00-5.00 HEMOGLOBIN (BEAKER) (test xvfd=784) 12.1 GM/DL 12.0-15.0 HEMATOCRIT (BEAKER) (test dcoj=527) 35.1 % 36.0-45.0 MEAN CORPUSCULAR VOLUME (BEAKER) (test mobh=549) 105.0 fL 82.0-99.0 MEAN CORPUSCULAR HEMOGLOBIN (BEAKER) (test dlwp=074) 36.3 pg 27.0-33.0 MEAN CORPUSCULAR HEMOGLOBIN CONC (BEAKER) (test alpc=939) 34.6 GM/DL 32.0-36.0 RED CELL DISTRIBUTION WIDTH (BEAKER) (test njit=902) 12.4 % 10.3-14.2 PLATELET COUNT (BEAKER) (test gaum=414) 217 K/CU MM 150-430 MEAN PLATELET VOLUME (BEAKER) (test rckq=477) 6.3 fL 6.5-10.5 NUCLEATED RED BLOOD CELLS (BEAKER) (test dmgd=901) 0 /100 WBC 0-0 NEUTROPHILS RELATIVE PERCENT (BEAKER) (test wxkp=086) 79 % LYMPHOCYTES RELATIVE PERCENT (BEAKER) (test chyl=148) 7 % MONOCYTES RELATIVE PERCENT (BEAKER) (test zlpt=052) 14 % EOSINOPHILS RELATIVE PERCENT (BEAKER) (test gitc=668) 0 % BASOPHILS RELATIVE PERCENT (BEAKER) (test ywnc=134) 0 % NEUTROPHILS ABSOLUTE COUNT (BEAKER) (test sqrx=744) 6.25 K/ L 1.80-8.00 LYMPHOCYTES ABSOLUTE COUNT (BEAKER) (test sqqz=018) 0.56 K/ L 1.48-4.50 MONOCYTES ABSOLUTE COUNT (BEAKER) (test zcha=458) 1.10 K/ L 0.00-1.30 EOSINOPHILS ABSOLUTE COUNT (BEAKER) (test xngg=052) 0.02 K/ L 0.00-0.50 BASOPHILS ABSOLUTE COUNT (BEAKER) (test jmxv=808) 0.01 K/ L 0.00-0.20 0.00PROTHROMBIN TIME/[id number] 05:27:00* Test Item Value Reference Range Comments PROTIME (BEAKER) (test iype=439) 12.9 seconds 11.7-14.7 INR (BEAKER) (test dbar=739) 1.0 <=5.9 RECOMMENDED COUMADIN/WARFARIN INR THERAPY RANGESSTANDARD DOSE: 2.0 - 3.0 Inclu corky: PROPHYLAXIS for venous thrombosis, systemic embolization; TREATMENT for daisy ous thrombosis and/or pulmonary embolus.HIGH RISK: Target INR is 2.5-3.5 for pat ients with mechanical heart valves.VITAMIN B12 AND [id number] 13:01:00* Test Item Value Reference Range Comments VITAMIN B12 (BEAKER) (test vcbj=988) 891 pg/mL 213-816 FOLATE (BEAKER) (test csrd=823) 16.3 ng/mL >=7.0 Effective 09/13/2014: Folate Reference Range ChangeNew: >=7.0 Previous: >=5.4 LIPID [id number] 12:27:00* Test Item Value Reference Range Comments TRIGLYCERIDES (BEAKER) (test smvv=761) 40 mg/dL CHOLESTEROL (BEAKER) (test wmiz=232) 146 mg/dL HDL CHOLESTEROL (BEAKER) (test ieaz=653) 79 mg/dL LDL CHOLESTEROL CALCULATED (BEAKER) (test xpeq=101) 59 mg/dL Triglyceride Reference Range: Low Risk <150 Borderline 150-199 High Risk 200-499 Very High Risk >=500Cholesterol Reference Range: Low Risk <200 Borderline 200-239 High Risk >240HDL Cholesterol Reference Range: Low Risk >=60 High Risk <40LDL Cholesterol Reference Range: Optimal <100 Near Optimal 100-129 Borderline 130-159 High 160-189 Very High >=190 URINALYSIS W/ REFLEX URINE [id number] 10:22:00* Test Item Value Reference Range Comments COLOR (BEAKER) (test ojpm=445) Yellow CLARITY (BEAKER) (test iujq=439) Clear SPECIFIC GRAVITY UA (BEAKER) (test icok=368) 1.005 1.001-1.035 PH UA (BEAKER) (test wnvw=947) 7.0 5.0-8.0 PROTEIN UA (BEAKER) (test jxap=306) Negative Negative GLUCOSE UA (BEAKER) (test vqpb=354) Negative Negative KETONES UA (BEAKER) (test xkjm=924) 40 mg/dL Negative BILIRUBIN UA (BEAKER) (test hghu=982) Negative Negative BLOOD UA (BEAKER) (test ttro=771) Negative Negative NITRITE UA (BEAKER) (test xfuk=578) Negative Negative LEUKOCYTE ESTERASE UA (BEAKER) (test ljvx=523) Negative Negative UROBILINOGEN UA (BEAKER) (test uzln=011) 0.2 mg/dL 0.2-1.0 RBC UA (BEAKER) (test wuxz=427) < /HPF WBC UA (BEAKER) (test aspc=924) < /HPF SOURCE(BEAKER) (test plrl=8179) TSH/FREE T4 IF [id number] 10:07:00* Test Item Value Reference Range Comments THYROID STIMULATING HORMONE (BEAKER) (test tlvx=343) 4.86 uIU/mL 0.35-4.94 HEPATIC FUNCTION [id number] 09:29:00* Test Item Value Reference Range Comments TOTAL PROTEIN (BEAKER) (test ktvg=437) 6.4 gm/dL 6.0-8.3 ALBUMIN (BEAKER) (test qqmm=3267) 3.6 g/dL 3.5-5.0 BILIRUBIN TOTAL (BEAKER) (test vjnq=015) 0.5 mg/dL 0.2-1.2 BILIRUBIN DIRECT (BEAKER) (test aslv=471) 0.3 mg/dL 0.1-0.5 ALKALINE PHOSPHATASE (BEAKER) (test kwen=582) 80 U/L 40-150 AST (SGOT) (BEAKER) (test gemu=073) 60 U/L 5-34 ALT (SGPT) (BEAKER) (test tnnr=997) 24 U/L 6-55 PROTHROMBIN [id number] 09:25:00* Test Item Value Reference Range Comments PROTIME (BEAKER) (test cllo=778) 13.2 seconds 11.7-14.7 INR (BEAKER) (test ecgt=730) 1.0 <=5.9 RECOMMENDED COUMADIN/WARFARIN INR THERAPY RANGESSTANDARD DOSE: 2.0 - 3.0 Inclu corky: PROPHYLAXIS for venous thrombosis, systemic embolization; TREATMENT for daisy ous thrombosis and/or pulmonary embolus.HIGH RISK: Target INR is 2.5-3.5 for pat ients with mechanical heart valves.[id number] 23:53:00* Test Item Value Reference Range Comments ETHANOL (BEAKER) (test xyfd=336) 196 mg/dL <=10 B-TYPE NATRIURETIC FACTOR (BNP)2017-01-04 23:06:00* Test Item Value Reference Range Comments B-TYPE NATRIURETIC PEPTIDE (BEAKER) (test nqof=234) 98 pg/mL 0-100 CREATINE KINASE (CK), TOTAL AND [id number] 23:05:00* Test Item Value Reference Range Comments CREATINE KINASE TOTAL (BEAKER) (test ljjl=991) 112 U/L 29-200 CREATINE KINASE-MB (BEAKER) (test gcga=527) 4.8 ng/mL 0.0-6.6 CREATINE KINASE-MB INDEX (BEAKER) (test mdun=741) 4.3 % Effective 09/13/2014: CK-MB Reference Range ChangeNew: 0.0-6.6 Previous: 0.0- 4.9CK-MB Reference Range:<6.7 Normal6.7-10.0 Borderline>10.0 Abnormal TROPONIN [id number] 23:05:00* Test Item Value Reference Range Comments TROPONIN I (BEAKER) (test ketz=818) 0.02 ng/mL 0.00-0.03 Effective 09/13/2014: Reference Range ChangeNew: 0.00-0.03 Previous 0.00-0.15T roponin I (TnI) levels must be interpreted in the context of the presenting symp toms and the clinical findings. Elevated TnI levels indicate myocardial damage, but are not specific for ischemic heart disease. Elevated TnI levels are seen in patients with other cardiac conditions (including myocarditis and congestive he art failure), and slight TnI elevations occur in patients with other conditions, including sepsis, renal failure, acidosis, acute neurological disease, and pers istent tachyarrhythmia.[id number] 22:59:00* Test Item Value Reference Range Comments MAGNESIUM (BEAKER) (test tisg=030) 2.2 mg/dL 1.6-2.6 Specimen slightly hemolyzed BASIC METABOLIC [id number] 22:59:00* Test Item Value Reference Range Comments SODIUM (BEAKER) (test tvmq=804) 136 meq/L 136-145 POTASSIUM (BEAKER) (test gjby=290) 3.6 meq/L 3.5-5.1 Specimen slightly hemolyzed CHLORIDE (BEAKER) (test xgui=255) 88 meq/L 98-107 CO2 (BEAKER) (test ofhh=094) 31 meq/L 22-29 BLOOD UREA NITROGEN (BEAKER) (test dkqc=551) 4 mg/dL 7-21 CREATININE (BEAKER) (test eeck=137) 0.52 mg/dL 0.57-1.25 Specimen slightly hemolyzed GLUCOSE RANDOM (BEAKER) (test iaka=402) 73 mg/dL 70-105 CALCIUM (BEAKER) (test emwx=048) 9.0 mg/dL 8.4-10.2 EGFR (BEAKER) (test ofdz=1241) 116 mL/min/1.73 sq m ESTIMATED GFR IS NOT ACCURATE CREATININE CLEARANCE IN PREDICTING GLOMERULAR FILTRATION RATE. ESTIMATED GFR IS NOT APPLICABLE FOR DIALYSIS PATIENTS. CBC W/PLT COUNT & AUTO [id number] 22:44:00* Test Item Value Reference Range Comments WHITE BLOOD CELL COUNT (BEAKER) (test cbqu=270) 9.7 K/ L 4.0-10.0 RED BLOOD CELL COUNT (BEAKER) (test mcoj=477) 4.04 M/ L 4.00-5.00 HEMOGLOBIN (BEAKER) (test tldn=707) 14.5 GM/DL 12.0-15.0 HEMATOCRIT (BEAKER) (test sbak=077) 42.5 % 36.0-45.0 MEAN CORPUSCULAR VOLUME (BEAKER) (test dpzb=623) 105.0 fL 82.0-99.0 MEAN CORPUSCULAR HEMOGLOBIN (BEAKER) (test bemo=491) 36.0 pg 27.0-33.0 MEAN CORPUSCULAR HEMOGLOBIN CONC (BEAKER) (test uzbv=555) 34.2 GM/DL 32.0-36.0 RED CELL DISTRIBUTION WIDTH (BEAKER) (test qsxz=089) 12.5 % 10.3-14.2 PLATELET COUNT (BEAKER) (test xaec=050) 295 K/CU MM 150-430 MEAN PLATELET VOLUME (BEAKER) (test esks=307) 5.8 fL 6.5-10.5 NUCLEATED RED BLOOD CELLS (BEAKER) (test wydn=529) 0 /100 WBC 0-0 NEUTROPHILS RELATIVE PERCENT (BEAKER) (test mmkq=980) 81 % LYMPHOCYTES RELATIVE PERCENT (BEAKER) (test lmkr=525) 9 % MONOCYTES RELATIVE PERCENT (BEAKER) (test mmws=371) 9 % EOSINOPHILS RELATIVE PERCENT (BEAKER) (test jsyz=808) 1 % BASOPHILS RELATIVE PERCENT (BEAKER) (test rijf=270) 1 % NEUTROPHILS ABSOLUTE COUNT (BEAKER) (test ydcv=854) 7.90 K/ L 1.80-8.00 LYMPHOCYTES ABSOLUTE COUNT (BEAKER) (test poib=352) 0.85 K/ L 1.48-4.50 MONOCYTES ABSOLUTE COUNT (BEAKER) (test gslu=264) 0.86 K/ L 0.00-1.30 EOSINOPHILS ABSOLUTE COUNT (BEAKER) (test oxmk=119) 0.05 K/ L 0.00-0.50 BASOPHILS ABSOLUTE COUNT (BEAKER) (test yzgo=117) 0.07 K/ L 0.00-0.20 0.00CT ABDOMEN/PELVIS WO [place] [address] Patient Name: YI DAMON MR #: [id number] : 1945 Age/Sex: 72/F Req #: [id number] Adm Physician: Ordered by: HUAN RICE MD Report #: [id number] Location: ER Room/Bed: Procedure: [id number] CT/CT ABDOMEN/PELVIS WO Exam D ate: 08/05/17 Exam Time: 2250 REPORT STATUS: Si gned EXAM: CT ABDOMEN/PELVIS WO DATE: 08/05/2017 9:35 PM INDICATION: S ABD PAIN, ? CONSTIPATION BUT WORSE IN RLQ, ORAL CONTRAST ONLY COMPARISON: None TECHNIQUE: The abdomen and pelvis were scanned using [facility] Coronal and sagittal reformations were obtained. Routine spencer col performed. Small amount, approximately 300 mm, of dilute Gastrografin was administered. IV Contrast none FINDINGS: IV contrast LOWER THORAX: Right lower lobe calcified granuloma. Coronary artery disease and/or stents st atus post sternotomy. LIVER/BILIARY: Severe hepatic steatosis. Scattered ca lcified granulomas. GALLBLADDER: Unremarkable SPLEEN: Scattered calcified granulomas. PANCREAS: Grossly unremarkable noncontrast appearance. ADREN ALS: No nodules KIDNEYS: Vascular calcifications. No renal stone disease or hy dronephrosis. GI TRACT: No evidence of bowel obstruction. Moderate rectal s tool burden with adjacent perirectal edema. Appendix is not discretely visuali zed. VESSELS: Severe/diffuse atherosclerotic calcification with focal parti al dissection or penetrating aortic ulcers of the infrarenal abdominal aorta (image 37), suboptimally assessed without IV contrast. PERITONEUM/RETROPERITO NEUM: No free air or fluid collection. LYMPH NODES: No lymphadenopathy RE PRODUCTIVE ORGANS/BLADDER: Moderately distended bladder. SOFT TISSUES: Unre markable BONES: Multilevel degenerative changes, worse of the lumbar spine wit h grade 1 anterolisthesis of L5 over S1 in the setting of bilateral pars defec ts. IMPRESSION: 1. Moderate rectal stool burden with perirectal edema suggesting some degree of reactive/stercoral inflammation. 2. Otherwise nega tive for acute abnormality on noncontrast evaluation. 3. Severe calcified athe rosclerotic disease. 4. Hepatic steatosis. Signed by: Hai Rowe on 08/05/2017 11:51 PM Dictated By: AMBER HURD MD 50 Transcribed By: ROSA MARIA on 08/05 COPY TO: HUAN RICE MD CHEST SINGLE (PORTABLE) [place] [address] Patient Name: YI DAMON MR #: [id number] : 0 1945 Age/Sex: 72/F Req #: [id number] Adm Physician: Ordered by: HUAN RICE MD Report #: [id number] Location: ER Room/Bed: Procedure: [id number] DX/CHEST SINGLE (PORTABLE) Exa m Date: 08/05/17 Exam Time: 2300 REPORT STATUS: Signed CHEST SINGLE (PORTABLE), 08/05/2017 9:35 PM Technique: CHEST SIN GLE (PORTABLE) Comparison: None available. Clinical history: Shortness of br eath Findings: Normal heart size status post sternotomy. Calcified right lower lobe granuloma. There is no consolidation or edema. Mild blunting of the right costophrenic angle. Impression: Right basilar pleural scarring v ersus trace fluid. Otherwise negative for acute abnormality. Signed by: Mariah Hurd MD on 08/06/2017 12:04 AM Dictated By: AMBER Lemus 0004 Transcribed By : ROSA MARIA on 08/06/17 0004 COPY TO: HUAN RICE MD
[2018-08-21] MEDS ORDERED: MULTIVITAMINS- 12 INJECTION 10 ML, FOLIC ACID MDV 5 MG, THIAMINE HCL INJ 100 MG in SODI... IV ONE (20:15)
[2018-08-21] MEDS ORDERED: SODIUM CHLORIDE 0.9% 1000ML 1,000 ML IV ONE (20:15)
[2018-08-21] MEDS ORDERED: CLOPIDOGREL75 MG PO (20:18)
[2018-08-21] MEDS ORDERED: AMIODARONE HCL200 MG PO (20:18)
[2018-08-21] MEDS ORDERED: LOSARTAN POTAS100 MG PO (20:18)
[2018-08-21] MEDS ORDERED: SYNTHROID125 MCG PO (20:18)
[2018-08-21] MEDS ORDERED: FOLIC ACID1 MG PO (20:18)
[2018-08-21] MEDS ORDERED: ATORVASTATIN CA20 MG PO (20:18)
[2018-08-21] MEDS ORDERED: MELOXICAM7.5 MG PO (20:18)
[2018-08-21] MEDS ORDERED: FERROUS SULFAT324 MG PO (20:18)
[2018-08-21 21:03] LABS: BASOPHILS # (AUTO) 0.1 (0.0-0.1); BASOPHILS % 0.4 % (0.0-1.0); EOSINOPHILS % 0.2 % (0.0-6.0); HEMATOCRIT 23.8 % (34.2-44.1); LYMPHOCYTES # (AUTO) 0.2 (1.0-3.2); LYMPHOCYTES % 0.7 % (18.0-39.1); MEAN CORPUSCULAR HEMOGLOBIN 30.1 pg (28-32); MEAN CORPUSCULAR HGB CONC 33.6 g/dL (31-35); MEAN CORPUSCULAR VOLUME 89.5 fL (81-99); MONOCYTES # (AUTO) 1.3 (0.2-0.8); MONOCYTES % 5.9 % (4.4-11.3); NEUTROPHILS # (AUTO) 20.4 (2.1-6.9); NEUTROPHILS % 90.7 % (38.7-80.0); PLATELET COUNT 182 x10e3/uL (140-360); RED BLOOD COUNT 2.66 x10e6/uL (3.6-5.1); RED CELL DISTRIBUTION WIDTH 20.2 % (11.7-14.4)
[2018-08-21 21:33] LABS: ALANINE AMINOTRANSFERASE 20 IU/L (0-55); ALBUMIN 2.7 g/dL (3.5-5.0); ALBUMIN/GLOBULIN RATIO 0.8 (0.8-2.0); ALKALINE PHOSPHATASE 131 IU/L (40-150); AMYLASE 12 U/L (25-125); ANION GAP 18.5 mmol/L (8-16); BLOOD UREA NITROGEN 59 mg/dL (7-26); BUN/CREATININE RATIO 19 (6-25); CALCIUM 8.7 mg/dL (8.4-10.2); CARBON DIOXIDE 22 mmol/L (22-29); CHLORIDE 92 mmol/L (98-107); CREATINE KINASE 358 IU/L (29-168); CREATININE, SERUM 3.07 mg/dL (0.57-1.11); EST GLOMERULAR FILTRATION RATE 15 ML/MIN (60-); GLUCOSE 117 mg/dL (74-118); POTASSIUM 3.5 mmol/L (3.5-5.1); SODIUM 129 mmol/L (136-145)
[2018-08-21 21:38] LABS: LIPASE < 4 U/L (8-78)
[2018-08-21] MEDS ORDERED: DIATRIZOATE MEGL/DIATRIZOA SOD 30 ML BTL PO ONE (21:48)
[2018-08-21 22:07] LABS: BAND NEUTROPHILS % (MANUAL) 2 %; MONOCYTES % (MANUAL) 2 % (3.4-9.0); NEUTROPHILS % (MANUAL) 96 % (40-74)
[2018-08-21 22:08] LABS: AMPHETAMINES SCREEN,URINE NEGATIVE (NEGATIVE); BENZODIAZEPINES SCREEN,URINE NEGATIVE (NEGATIVE); CLARITY,URINE CLOUDY (CLEAR); COLOR,URINE AMBER (YELLOW); KETONES,URINE NEGATIVE (NEGATIVE); LEUKOCYTE ESTERASE ,URINE 2+ (NEGATIVE); NITRITE,URINE NEGATIVE (NEGATIVE); PHENCYCLIDINE SCREEN,URINE NEGATIVE (NEGATIVE); PROTEIN,URINE DIPSTICK 2+ (NEGATIVE); URINE UROBILINOGEN 0.2 mg/dL (0.2 - 1)
[2018-08-21 22:09] LABS: BACTERIA,URINE MANY /HPF; BILIRUBIN,URINE NEGATIVE (NEGATIVE); EPITHELIAL CELLS,URINE RARE /LPF; MUCUS,URINE MANY (RARE); WBC,URINE (MAN) >50 /HPF (0-5)
[2018-08-21 22:09] LABS: ANISOCYTOSIS SLIGHT; HYPOCHROMASIA SLIGHT; PLATELET ESTIMATE ADEQUATE; POLYCHROMASIA FEW
[2018-08-21 22:10] LABS: PLATELET MORPHOLOGY COMMENT FEW LARGE
--- NOTE | 2018-08-21 22:39 | Diagnostic Imaging Report ---
CHEST SINGLE (PORTABLE), 08/21/2018 8:12 PM Technique: CHEST SINGLE (PORTABLE) Comparison: 08/05/2017 Clinical history: Shortness of breath Findings: Stable cardiomediastinal silhouette status post median sternotomy. Left lower lobe opacity. Incidental scattered calcified granulomas. No significant effusion or pneumothorax. Impression: Left lower lobe opacity may reflect atelectasis or pneumonia. Recommend follow-up upright PA and lateral. Signed by: Dr Svetlana Hurd MD on 08/21/2018 10:36 PM
[2018-08-21] MEDS: CEFTRIAXONE SOD 1 GM VIAL IV SCH (23:58)
[2018-08-22] VITALS (35 sets, daily range): BP systolic 69–124; BP diastolic 44–68
--- NOTE | 2018-08-22 00:02 | Diagnostic Imaging Report ---
EXAM: CT ABDOMEN/PELVIS WO DATE: 08/21/2018 8:12 PM INDICATION: Abdominal pain, diarrhea COMPARISON: 08/05/2017 TECHNIQUE: The abdomen and pelvis were scanned using a multidetector helical scanner. Coronal and sagittal reformations were obtained. CT low dose techniques were utilized, as applicable. IV Contrast: 0 ml Isovue 300/370 Oral contrast was administered. FINDINGS: Lack of IV contrast decreases sensitivity in evaluating abdominal and pelvic organs. LOWER THORAX: Small left effusion. Trace right pleural fluid. Bibasilar atelectasis and right costophrenic granuloma. Coronary and aortic atherosclerosis. Median sternotomy wires. LIVER/BILIARY: Calcified granulomas. Improved hepatic steatosis from prior. GALLBLADDER: Grossly unremarkable SPLEEN: Not enlarged. Calcified granulomas. PANCREAS: Atrophic ADRENALS: No nodules KIDNEYS: No hydronephrosis or obstructing stones. Moderate perinephric stranding, nonspecific. GI TRACT: No evidence of bowel obstruction. Appendix is not seen. VESSELS: Severe/diffuse atherosclerotic calcification with focal partial dissection or penetrating aortic ulcers of the infrarenal abdominal aorta, seen on prior PERITONEUM/RETROPERITONEUM: No free air or fluid LYMPH NODES: No lymphadenopathy REPRODUCTIVE ORGANS/BLADDER: No pelvic masses. Bladder is decompressed. SOFT TISSUES: Sac containing right inguinal hernia. BONES: Severe degenerative changes with bilateral L5 pars defects and grade 1 anterolisthesis. IMPRESSION: No acute abnormality on suboptimal noncontrast evaluation. Signed by: Dr Svetlana Hurd MD on 08/21/2018 11:59 PM
[2018-08-22] MEDS ORDERED: SODIUM CHLORIDE 0.9% 1000ML 1,000 ML IV ONE (00:15)
[2018-08-22] MEDS ORDERED: SODIUM CHLORIDE 0.9% 1000ML 1,000 ML IV SCH ×2 (01:04→16:30)
--- OUTSIDE RECORDS SUMMARY | 2018-08-22 01:15 | XMS REPORT | Clinical Summary ---
Author Author FREDERIC [email or web address] Organization [facility] Address Unknown Phone Unavailable Care Team Providers Care Log Roller Name Role Phone Woody Larsen MD PCP Allergies Comments Active Allergy Reactions Severity Noted Date delirium Hydromorphone 06/09/2014 This diagnosis of Stroke is a prior history, remote! Warfarin 08/13/2018 Medications End Date Status Medication Sig Dispensed Refills Start Date Active gabapentin (NEURONTIN) Take 100 mg 0 100 MG tablet by mouth 3 (three) times daily . Active IRON/FA/B12/C/DOCUSATE Take by mouth 0 SODIUM (FERRAPLUS 90 daily. ORAL) Active polyvinyl alcohol Place 1 drop 0 (LIQUIFILM TEARS) 1.4 % into both ophthalmic eyes 3 solutionIndications: Dry (three) times Eye daily. Active [id number]-wax-[id number]-FA-lute Take by 0 in (CENTRUM SILVER WOMEN) mouth. 8 mg iron-400 mcg-300 mcg Tab Active pantoprazole (PROTONIX) Take 40 mg by 0 40 MG tablet mouth daily. Active nicotine (NICODERM CQ) 21 Place 1 patch 0 mg/24 hr patch onto the skin daily. Active clopidogrel (PLAVIX) 75 Take 75 mg by 0 mg tablet mouth daily. 08/15/2019 Active levothyroxine (SYNTHROID, Take 1 tablet 360 tablet 0 LEVOTHROID) 175 MCG (175 mcg 8 tablet total) by mouth Every morning on an empty stomach. 08/14/2019 Active atorvastatin (LIPITOR) 40 Take 1 tablet 360 tablet 0 MG tablet (40 mg total) 8 by mouth daily. 08/15/2019 Active losartan (COZAAR) 100 MG Take 1 tablet 360 tablet 0 tablet (100 mg 8 total) by mouth daily. 08/14/2019 Active amiodarone (PACERONE) 200 Take 1 tablet 180 tablet 0 MG tablet (200 mg 8 total) by mouth every other day. 08/14/2018 Discontinued aspirin 81 MG EC tablet Take 81 mg by 0 mouth daily. 08/14/2018 Discontinued levothyroxine (SYNTHROID, Take 100 mcg 0 LEVOTHROID) 25 MCG tablet by mouth daily . 08/14/2018 Discontinued magnesium oxide (MAG-OX) Take 400 mg 0 400 mg tablet by mouth daily. 01/10/2018 budesonide (PULMICORT) Take 2 mLs 60 mL 0 0.25 mg/2 mL nebulizer (0.25 mg 7 solution total) by nebulization 2 (two) times daily. 01/10/2018 thiamine (VITAMIN B-1) 50 Take 1 tablet 30 tablet 11 MG tablet (50 mg total) 7 by mouth daily. 08/14/2018 Discontinued traMADol (ULTRAM) 50 mg Take 50 mg by 0 tablet mouth every 6 (six) hours as needed for Pain. 07/24/2018 clopidogrel (PLAVIX) 75 Take 1 tablet 30 tablet 11 mg tablet (75 mg total) 7 by mouth daily. 07/24/2018 amLODIPine (NORVASC) 2.5 Take 1 tablet 30 tablet 11 MG tablet (2.5 mg 7 total) by mouth daily. 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 last use of inhaler Hypothyroidism Overview: hypothyroid Encounters Care Team Description Date Type Specialty Woody Larsen MD L CATH & CORONARY ANGIOS 08/13/2018 Surgery Woody Larsen MD 08/13/2018 Hospital Cardiology - Encounter 08/14/2018 Woody Larsen MD 08/13/2018 Orders Only Cardiology after 08/21/2017 Immunizations Name Dates Previously Given Next Due Influenza TIV (IM) 06/27/2014 Pneumococcal Conjugate 06/27/2014 (Prevnar) 13-Valent Pneumococcal 01/06/2017 Polysaccharide (Pneumovax) Tdap 01/20/2015 Family History Medical History Relation Name Comments Bipolar disorder Mother Diabetes Mother Heart disease Mother Relation Name Status Comments Mother Social History Date Tobacco Use Types Packs/Day Years Used Current Every Day Smoker Cigarettes 1 55 Smokeless Tobacco: Never Used Tobacco Cessation: Ready to Quit: Yes; Counseling Given: Yes Comments: previously educated Alcohol Use Drinks/Week oz/Week Comments Yes 14 Glasses of 12.6 wine 7 Cans of beer Sex Assigned at Date Recorded Not on file Industry Job Start Date Occupation Not on file Not on file Not on file Travel End Travel History Travel Start No recent travel history available. Last Filed Vital Signs Time Taken Vital Sign Reading 08/14/2018 7:30 AM CDT Blood Pressure 105/46 08/14/2018 7:30 AM CDT Pulse 74 08/14/2018 7:30 AM CDT Temperature 36.6 C (97.8 F) 08/14/2018 7:30 AM CDT Respiratory Rate 18 08/14/2018 7:30 AM CDT Oxygen Saturation 95% - Inhaled Oxygen - Concentration 08/14/2018 7:30 AM CDT Weight 49.5 kg (109 lb 3.5 oz) 08/13/2018 10:50 AM CDT Height 154.9 cm (5' 1") 08/14/2018 7:30 AM CDT Body Mass Index 20.64 Plan of Treatment Health Maintenance Due Date Last Done Comments INFLUENZA VACCINE 07/27/2018 Implants Device Identifier Shelf Expiration Date Model / Serial / Lot Implanted Type Area Manufactur er [id number] 04/12/2020 [id number] / / [id number] Synergy Cardiovasc N/A: Heart [place] Implanted: Qty: 1 on 08/13/2018 by Woody Layton MD 11/26/2015 [id number] / / [id number] Sealant,Floseal Hemostatic Matrix Cement/Gilberto Bilateral: Back [id number] 10ml - [id number] ler/Adhesi BIOSCIENCE Implanted: Qty: 1 on 10/28/2014 by Kings Somers MD [employer] [id number] 09/07/2018 [id number] / / [id number] Promus Premier Stents-Cor N/A: Coronary [place] Implanted: Qty: 1 on 07/23/2017 by Woody Hayes MD Procedures Comments Procedure Name Priority Date/Time Associated Diagnosis REPORT OF PROCEDURE - 08/17/2018 ENDOSCOPY SCAN 1:23 PM CDT CARDIAC CATH REPORT - 08/17/2018 SCAN 1:23 PM CDT VASCULAR DIAGRAM -SCAN 08/17/2018 1:23 PM CDT RHYTHM STRIP - SCAN 08/17/2018 1:23 PM CDT CBC (HEMOGRAM ONLY) Routine 08/14/2018 4:17 AM CDT BASIC METABOLIC PANEL (7) Routine 08/14/2018 4:17 AM CDT POCT-ACT Routine 08/13/2018 11:10 PM CDT POCT-ACT Routine 08/13/2018 9:40 PM CDT POCT-ACT Routine 08/13/2018 8:48 PM CDT POCT-ACT Routine 08/13/2018 3:51 PM CDT L CATH & CORONARY ANGIOS 08/13/2018 Atherosclerosis of [place] 3:35 PM CDT coronary artery of [place] heart without angina pectoris Abnormal cardiovascular stress test Case Notes POP6 L CATH POSS1 P.M. START REQUESTED after 08/21/2017 Results * EKG-SCANNED (08/17/2018 1:23 PM CDT) Narrative Performed At * CARDIAC CATH REPORT - SCAN (08/17/2018 1:23 PM CDT) Narrative Performed At * VASCULAR DIAGRAM -SCAN (08/17/2018 1:23 PM CDT) Narrative Performed At * RHYTHM STRIP - SCAN (08/17/2018 1:23 PM CDT) Narrative Performed At * CBC (Hemogram only) (08/14/2018 4:17 AM CDT) WBC 10.8 (H) 3.5 - 10.5 K/L [facility] RBC 2.80 (L) 3.93 - 5.22 M/L [facility] Hemoglobin 8.2 (L) 11.2 - 15.7 GM/DL [facility] Hematocrit 25.1 (L) 34.1 - 44.9 % [facility] MCV 89.6 79.4 - 94.8 fL [facility] MCH 29.3 25.6 - 32.2 pg [facility] MCHC 32.7 32.2 - 35.5 GM/DL [facility] RDW 18.4 (H) 11.7 - 14.4 % [facility] Platelets 177 150 - 450 K/CU MM [facility] MPV 10.7 9.4 - 12.3 fL [facility] nRBC 0 0 - 0 /100 WBC [facility] Specimen Blood Performing Organization Address City/State/Zipcode Phone Number [facility] [address] [place] [address] MEDICAL CENTER * Basic metabolic panel (08/14/2018 4:17 AM CDT) Sodium 132 (L) 136 - 145 meq/L [facility] Potassium 3.0 (L) 3.5 - 5.1 meq/L [facility] Chloride 99 98 - 107 meq/L [facility] CO2 22 22 - 29 meq/L [facility] BUN 6 (L) 7 - 21 mg/dL [facility] Creatinine 0.58 0.57 - 1.25 mg/dL [facility] Glucose 86 70 - 105 mg/dL [facility] Calcium 8.1 (L) 8.4 - 10.2 mg/dL [facility] EGFR 102Comment: ESTIMATED GFR IS mL/min/1.73 sq m [facility] NOT ACCURATE CREATININE [facility] CLEARANCE IN PREDICTING GLOMERULAR FILTRATION RATE. ESTIMATED GFR IS NOT APPLICABLE FOR DIALYSIS PATIENTS. Specimen Blood Performing Organization Address City/[facility] Phone Number [address] [address] [facility] * POC ACTIVATED CLOTTING TIME (08/13/2018 11:10 PM CDT) Only the most recent of 4 results within the time period is included. Activated Clotting Time 136Comment: TESTED AT [facility] sec [place] [id number] [facility] Specimen Blood Performing Organization Address City/[facility] Phone Number [address] [phone] [facility] after 08/21/2017 Insurance Payer Benefit Subscriber ID Type Phone Address Plan / Group MEDICARE MEDICARE A xxxxxxxxxx Medicare B MCR SUPPLEMENT/INDIVIDUAL AARP/UNITE xxxxxxxxxxx [facility] D HEALTHCARE Advance Directives For more information, please contact: [place] [phone] Date Inactivated Comments Code Status Date Activated 08/14/2018 6:41 PM Full Code 08/13/2018 11:43 AM This code status was determined by: Patient 07/23/2016 11:53 AM Full Code 07/19/2016 9:21 PM This code status was determined by: Patient 06/18/2016 3:27 PM Full Code 06/12/2016 6:51 PM This code status was determined by: Patient 06/12/2016 6:51 PM Full Code 06/12/2016 8:35 AM This code status was determined by: Patient 10/29/2014 12:50 AM Full Code 10/28/2014 6:45 AM This code status was determined by: Patient Relationship Healthcare Agent Relationship Phone Name Relative Primary healthcare agent [phone] Katie Nguyễn
[2018-08-22] MEDS ORDERED: CHLORDIAZEPOXIDE HCL 25 MG CAP PO ONE (04:00)
[2018-08-22] MEDS ORDERED: METHYLPREDNISOLONE SOD SUCC 125 MG/2ML VIAL IV ONE (04:15)
[2018-08-22] MEDS ORDERED: IPRATROPIUM BROMIDE 0.02% 2.5 ML NEB NEB ONE (04:15)
[2018-08-22] MEDS ORDERED: LEVALBUTEROL HCL SOLN NEBU 0.63 MG/3 ML NEB INH ONE (04:15)
[2018-08-22] MEDS ORDERED: LORAZEPAM INJ 2 MG/ML VIAL IV ONE (04:15)
[2018-08-22 04:48] LABS: BASOPHILS # (AUTO) 0.1 (0.0-0.1); BASOPHILS % 0.3 % (0.0-1.0); EOSINOPHILS % 0.2 % (0.0-6.0); HEMOGLOBIN 7.2 g/dL (12.0-16.0); LYMPHOCYTES # (AUTO) 0.3 (1.0-3.2); LYMPHOCYTES % 1.5 % (18.0-39.1); MEAN CORPUSCULAR HGB CONC 33.6 g/dL (31-35); MEAN CORPUSCULAR VOLUME 89.2 fL (81-99); MONOCYTES # (AUTO) 1.3 (0.2-0.8); MONOCYTES % 6.8 % (4.4-11.3); NEUTROPHILS # (AUTO) 17.3 (2.1-6.9); NEUTROPHILS % 88.6 % (38.7-80.0); PLATELET COUNT 137 x10e3/uL (140-360); RED CELL DISTRIBUTION WIDTH 20.2 % (11.7-14.4)
[2018-08-22 05:05] LABS: ALBUMIN 2.1 g/dL (3.5-5.0); ALBUMIN/GLOBULIN RATIO 0.7 (0.8-2.0); ANION GAP 16.1 mmol/L (8-16); CALCIUM 7.5 mg/dL (8.4-10.2); CREATININE, SERUM 2.52 mg/dL (0.57-1.11); HEMATOCRIT 21.4 % (34.2-44.1); POTASSIUM 3.1 mmol/L (3.5-5.1)
[2018-08-22] MEDS ORDERED: CALCIUM CHLORIDE 10% 1.36 MEQ/ML 10ML SYR IV STA (05:09)
[2018-08-22] MEDS ORDERED: POTASSIUM CHLORIDE 20 MEQ TAB CR PO STA (05:11)
[2018-08-22] MEDS ORDERED: MAGNESIUM SULFATE 2GM/50ML 50 ML IV ONE (05:15)
[2018-08-22 05:23] LABS: CREATINE KINASE 271 IU/L (29-168)
[2018-08-22] MEDS ORDERED: SODIUM CHLORIDE 0.9% 250ML 250 ML IV ONE (05:30)
[2018-08-22] MEDS ORDERED: KCL 20MEQ/.9 SOD CHL 1,000 ML IV ONE ×2 (06:15→11:34)
[2018-08-22 06:51] LABS: INR 1.23; PROTHROMBIN TIME 16.6 seconds (11.9-14.5)
[2018-08-22 06:52] LABS: PARTIAL THROMBOPLASTIN TIME 38.6 seconds (23.8-35.5)
[2018-08-22] MEDS ORDERED: ALPRAZOLAM 0.5 MG TAB PO PRN (07:00)
[2018-08-22 07:06] LABS: BAND NEUTROPHILS % (MANUAL) 4 %; LYMPHOCYTES % (MANUAL) 4 % (19-48); MONOCYTES % (MANUAL) 9 % (3.4-9.0); NEUTROPHILS % (MANUAL) 83 % (40-74); PLATELET ESTIMATE ADEQUATE; PLATELET MORPHOLOGY COMMENT NORMAL; RBC MORPHOLOGY COMMENT NORMAL
[2018-08-22] MEDS ORDERED: SUCCINYLCHOLINE 200 MG/10 ML SYR IV STA (07:53)
[2018-08-22] MEDS ORDERED: ETOMIDATE 2 MG/ML 10 ML INJ IV STA (07:53)
[2018-08-22] MEDS ORDERED: MIDAZOLAM HCL 25 MG in SODIUM CHLORIDE 0.9% 50ML 45 ML IV PRN (08:00)
[2018-08-22] MEDS ORDERED: VECURONIUM BROMIDE FOR INJ 20 MG VIAL ONE (08:30)
[2018-08-22] MEDS ORDERED: MIDAZOLAM HCL 2 MG/2 ML VIAL ONE (08:30)
[2018-08-22] MEDS ORDERED: VECURONIUM BROMIDE FOR INJ 20 MG VIAL IV ONE (09:00)
[2018-08-22] MEDS ORDERED: MIDAZOLAM HCL 2 MG/2 ML VIAL IV ONE (09:00)
[2018-08-22] MEDS ORDERED: AMIODARONE HCL 200 MG TAB PO SCH (09:00)
[2018-08-22 09:33] LABS: ANION GAP 13.3 mmol/L (8-16); CALCIUM 8.4 mg/dL (8.4-10.2); CREATININE, SERUM 2.46 mg/dL (0.57-1.11); POTASSIUM 3.3 mmol/L (3.5-5.1)
[2018-08-22 09:45] LABS: CREATINE KINASE 151 IU/L (29-168)
--- NOTE | 2018-08-22 10:00 | Diagnostic Imaging Report ---
Examination: Single AP view of the chest. COMPARISON: Chest AP 08/22/2018 INDICATION: Post right CVC placement IMPRESSION: 1. Lines and Tubes: Interval placement of right-sided subclavian approach line with distal tip projecting in the distal SVC. 2. No pneumothorax is identified. Otherwise, no significant interval change from prior exam. Signed by: Dr. Lee Hanna M.D. on 08/22/2018 9:56 AM
[2018-08-22 10:01] LABS: ABG HCO3 19 mmol/L (23-28); ABG PCO2 39 mmHg (41-51); ABG PO2 210 mmHg (80-105)
[2018-08-22] MEDS: THIAMINE HCL 100 MG TAB PO SCH (10:11)
[2018-08-22] MEDS: FAMOTIDINE 20 MG TAB PO SCH ×2 (10:11→16:30)
[2018-08-22] MEDS: FOLIC ACID 1 MG TAB PO SCH (10:11)
[2018-08-22] MEDS: MULTIVITAMINS/MINERALS TAB PO SCH (10:11)
[2018-08-22] MEDS: FERROUS SULFATE 325 MG TAB PO SCH ×2 (11:23→21:00)
[2018-08-22] MEDS: GABAPENTIN 100 MG CAP PO SCH ×3 (11:25→21:00)
[2018-08-22] MEDS: SODIUM CHLORIDE 0.9% 1000ML 1,000 ML IV SCH ×4 (11:25→21:24)
--- NOTE | 2018-08-22 11:53 | Diagnostic Imaging Report ---
Examination: Single AP view of the chest. COMPARISON: Portable chest 08/21/2018 INDICATION: ET tube placement IMPRESSION: 1. Lines and Tubes: Interval placement of endotracheal tube, which has distal tip approximately 1 cm above the tiffanie. 2. Lungs are well-inflated. Patchy left lower lung opacity and obscuration of the left hemidiaphragm, likely reflecting left pleural effusion and associated atelectasis or consolidation. 5-6 mm calcified granuloma in the right lower lung. 3. Cardiomediastinal silhouette is normal. Pulmonary vasculature is normal. Uncoiled aorta. CABG changes 4. No acute bony abnormalities. Signed by: Dr. Lee Hanna M.D. on 08/22/2018 11:49 AM
--- NOTE | 2018-08-22 13:28 | History and Physical ---
CHIEF COMPLAINT: Shortness of breath. HISTORY OF PRESENT ILLNESS: Ms. Boggs is a 73-year-old female who presented to the emergency room with complaints of shortness of breath and not feeling well. She developed atrial fibrillation in the emergency room. Her electrolytes were replaced. She kept on becoming tachycardic. She became hypotensive and tachycardic in the emergency room and she was intubated. Patient's niece is at the bedside and the source of history is patient's niece. Currently, she is intubated and sedated. According to the niece, the patient has a longstanding history of severe alcoholism and she is a very heavy drinker and lately has been heavier than usual. She has history of head and neck cancer, for which she was treated with radiation few years ago and she was told that she has had aspiration risk and she was recommended feeding tube; however, she refused that and she kept on eating. She also has history of cardiomyopathy and coronary artery disease. A week ago, she was at [facility] where she received her stent. She also has history of CABG in the past. She has been noncompliant with taking her medications as well. REVIEW OF SYSTEMS: Unable to elicit any review of systems from the patient because she is intubated and sedated. She was here in [address] and was [address] Dr[address] Simon at that time. She presented then with abdominal pain. She had MSSA bacteremia and cellulitis. PAST MEDICAL HISTORY 1. Coronary artery disease, history of CABG. 2. Head and neck cancer. This was cancer of unknown primary, was treated at [facility] and patient received radiation treatment. She had damage from swallowing and was recommended PEG tube; however, she refused it. 3. History of back pain and back surgery. 4. Chronic neuropathy. 5. Anxiety. 6. Hypothyroidism. FAMILY AND SOCIAL HISTORY: She is an extremely heavy drinker. She has been a smoker for 40+ years. Lately, she has been heavier drinker than ever. MEDICATIONS: Reviewed. PHYSICAL EXAMINATION VITAL SIGNS: Temperature 95.0, pulse of 76, blood pressure 121/66, respiratory rate of 18, O2 sat 100% on 40% FiO2. HEENT: Head atraumatic, normocephalic. She appears jaundiced. Sclerae appears to be anicteric. Conjunctivae pale. She is intubated. NECK: Supple. CHEST: Good air entry bilaterally. No crackles or wheezing. HEART: S1, S2 audible. ABDOMEN: Soft, nontender, nondistended. Bowel sounds audible. EXTREMITIES: Patient has peal edema. NEUROLOGIC: She is sedated and intubated. LABS: Sodium 129, potassium 3.3, chloride 100, BUN 55, creatinine 2.46. She had magnesium of 1.1 last night and magnesium was replaced. BNP less than 0.05. White count of 19,000, white count was 22,000 yesterday, hemoglobin 7.2, platelets 136. Blood gas; pH of 7.3, pCO2 of 39, pO2 of 210. Chest x-ray; I have reviewed the images, it is showing line and tube placement are fine. It is showing possible lower lung opacity and possible pneumonia versus effusion. CT abdomen and pelvis was done in the emergency room, which showed no acute abnormality. Urine culture is growing gram-negative bacillus. ASSESSMENT/PLAN: Ms. Boggs is a 73-year-old female. She has a history of alcoholism. She is a heavy drinker, coronary artery disease. She presented with weakness, dehydration, shortness of breath. She was having some epigastric discomfort as well and her hemoglobin is 7.2. Hemoglobin was 8.0 yesterday. INR is 1.23. She was intubated in the emergency room because she became hypotensive and was having shortness of breath. Current problems; 1. Abdominal pain, anemia, history of alcohol abuse. Supportive treatment. We will consult GI. 2. Urinary tract infection. Continue the patient on IV Rocephin. 3. Acute kidney injury. Her creatinine was normal during last admission. I will consult nephrology. Continue the patient on IV hydration. 4. Acute hypoxic respiratory failure. Continue ventilator support. Possibility of pneumonia. 5. Atrial fibrillation, which has resolved. Cardiology has been consulted. We will follow their recommendations. 6. Hypomagnesemia and hypokalemia. Patient has history of alcohol abuse and maybe electrolyte abnormality because of longstanding drinking. Magnesium was replaced in the emergency room. We will recheck for a.m. Critical care time spent 50 minutes. Job#: [id number] JO-ANN
[2018-08-22] MEDS: METRONIDAZOLE 500MG/NS 100ML 100 ML IV SCH ×2 (14:22→21:24)
[2018-08-22] MEDS ORDERED: ETOMIDATE 40 MG/ 20ML VIAL IV ONE (15:32)
[2018-08-22] MEDS ORDERED: SUCCINYLCHOLINE 200 MG/10 ML SYR ONE (15:32)
[2018-08-22 15:56] LABS: ANION GAP 14.7 mmol/L (8-16); CALCIUM 8.1 mg/dL (8.4-10.2); CREATININE, SERUM 2.48 mg/dL (0.57-1.11); MAGNESIUM 1.6 MG/DL (1.3-2.1); PHOSPHORUS 4.1 MG/DL (2.3-4.7); POTASSIUM 3.7 mmol/L (3.5-5.1)
[2018-08-22] MEDS ORDERED: PHYTONADIONE 10 MG/ML AMP SQ ONE ×2 (16:30→19:00)
[2018-08-22] MEDS ORDERED: NOREPINEPHRINE 8 MG/D5W 250 ML 250 ML IV SCH (16:30)
[2018-08-22] MEDS ORDERED: SODIUM CHLORIDE 0.9% 250ML 250 ML ONE ×2 (16:44→19:41)
[2018-08-22] MEDS ORDERED: PANTOPRAZOLE 40 MG 10ML VIAL IV ONE (17:00)
[2018-08-22] MEDS ORDERED: PHYTONADIONE 10MG/ML 10 MG in SODIUM CHLORIDE 0.9% 100 ML IV ONE (17:00)
[2018-08-22] MEDS ORDERED: CLOPIDOGREL BISULFATE 75 MG TAB PO ONE (18:00)
[2018-08-22 18:50] LABS: CREATINE KINASE MB 2.1 ng/mL (0-5.0)
[2018-08-22] MEDS ORDERED: ASPIRIN 300 MG SUPP PR ONE (19:30)
--- NOTE | 2018-08-22 19:41 | Consultation ---
DATE OF CONSULTATION: August 22, 2018 CARDIOLOGY CONSULT NOTE REQUESTING PHYSICIAN: Dr. Whitney. REASON FOR CONSULTATION: Atrial fibrillation. HISTORY OF PRESENT ILLNESS: This is a 73-year-old woman with history of coronary artery disease status post CABG and stent, head and neck cancer status post radiation therapy and hypothyroidism, who presented to the [facility] ER with complaints of shortness of breath. In the ER, she was noted to develop atrial fibrillation with rapid ventricular response. She was subsequently intubated due to her shortness of breath. All history is obtained from the electronic medical record as no family is available at bedside and patient is currently intubated and sedated in the ICU. REVIEW OF SYSTEMS: Unable to obtain secondary to intubation and sedation. PAST MEDICAL HISTORY 1. Coronary artery disease, status post CABG with recent stent placement at [facility]. 2. History of head and neck cancers, status post radiation therapy with subsequent dysphagia. 3. Reported history of cardiomyopathy. 4. Hypothyroidism. 5. Anxiety. 6. Chronic back pain. 7. Neuropathy. PAST SURGICAL HISTORY: Stent and CABG. ALLERGIES: PLEASE SEE EMR. MEDICATIONS: Please see medication list. SOCIAL HISTORY: Reportedly 40+ year smoking history and heavy alcohol use. FAMILY HISTORY: Unable to obtain secondary to intubation and sedation. PHYSICAL EXAMINATION VITAL SIGNS: Temperature 98.7 degrees, pulse 104, respiratory rate 14, blood pressure 91/57, oxygen saturation 100% on mechanical ventilation. GENERAL: Well-developed, well-nourished woman. HEENT: Normocephalic, atraumatic. NECK: Supple. No thyromegaly or cervical lymphadenopathy. No carotid bruits. LUNGS: Clear to auscultation bilaterally. No wheezes or crackles. CARDIOVASCULAR: Normal rate, regular rhythm. Normal S1 and S2. ABDOMEN: Soft, nontender. EXTREMITIES: No edema. NEURO: Unable to assess secondary to intubation and sedation. LABS: WBC 19.51, hemoglobin 7.2, hematocrit 21.4, and platelets 137. Sodium 132, potassium 3.7, chloride 103, CO2 of 18, BUN 58, creatinine 2.48. Troponin is less than 0.05, amylase 12, lipase less than 4. IMAGING: Chest x-ray, patchy left lower lung opacity and obscuration of the left hemidiaphragm likely representing left pleural effusion associated with atelectasis or consolidation, calcified granuloma in the right lower lung, cardiomediastinal silhouette is normal, pulmonary vasculature is normal. Uncoiled aorta, CABG changes, no acute bony abnormalities. CT abdomen and pelvis, no acute abnormality on suboptimal noncontrast evaluation. EKG; atrial fibrillation with rapid ventricular response with premature aberrantly conducted complexes, cannot rule out anterior infarct, age indeterminate. IMPRESSION 1. Acute respiratory failure currently intubated, suspect pneumonia. 2. Abnormal urinalysis suggestive of urinary tract infection. 3. Paroxysmal atrial fibrillation with rapid ventricular response. 4. Acute kidney injury. 5. Heavy alcohol use. 6. Anemia. 7. Coronary artery disease, status post coronary artery bypass grafting and recent stent. 8. History of head and neck cancer, status post radiation with resulting dysphagia. 9. Hypothyroidism. RECOMMENDATIONS: No evidence of myocardial infarction on serial cardiac biomarkers. Check TSH. We will obtain an echocardiogram to evaluate patient's ejection fraction. Continue monitoring patient on telemetry. Continue home cardiac medications, specifically patient must remain on Plavix and aspirin given recent reported stent placement. Hold antihypertensive therapy at this time. Given suspicion of heavy alcohol use, we will hold amiodarone as well. Supportive care and antibiotics per primary service. Ventilator management per pulmonary. Thank you for this consult. We will continue to follow. Job#: [id number] SHANTELL
--- NOTE | 2018-08-22 19:58 | Consultation ---
DATE OF CONSULTATION: August 22, 2018 ATTENDING PHYSICIAN: Dr. Marcia Whitney. REASON FOR CONSULTATION: Acute kidney injury. Patient is currently intubated and sedated. HISTORY OF PRESENT ILLNESS: Patient is a 73-year-old female with past medical history of coronary artery disease, status post CABG, recent stent, head and neck cancer, receives radiation at [facility] and refused PEG tube in the past, chronic neuropathy, anxiety, hypothyroidism, history of heavy alcohol abuse, and positive for heavy smoking, questionable history of cirrhosis who was originally admitted with shortness of breath, not feeling well. According to the niece who was at bedside said, patient has been having a dark stool and also has history of cirrhosis. When she came to the emergency room, her hemoglobin was found to be at 7.3. In the emergency room, patient started getting short of breath and have to get intubated. Also had atrial fibrillation. Patient is currently in ICU. Blood pressure was running low. Then after 1 liter of normal saline bolus, currently systolic blood pressure is in the 100s. Patient is currently getting PRBC as hemoglobin was found to be 7.2. Her creatinine was 2.48. In March 2018, it was normal at 0.55. Patient has a Dash catheter placed. There is no history of nausea, vomiting, or hematemesis. PAST MEDICAL HISTORY: As above. PAST SURGICAL HISTORY: CABG. SOCIAL HISTORY: Positive for alcohol. Positive for smoking. She lives at home. ALLERGIES: TO HYDROMORPHONE. MEDICATIONS: Currently on metronidazole, ceftriaxone, Plavix, aspirin, Zofran p.r.n., atorvastatin, alprazolam, levothyroxine. REVIEW OF SYSTEMS: Unable to obtain. PHYSICAL EXAMINATION VITAL SIGNS: Blood pressure 101/61, pulse of 72, respiration is 16, 100% on the vent. GENERAL: Intubated, sedated. HEART: S1 and S2. LUNGS: Decreased breath sounds at the bases. ABDOMEN: Soft. Bowel sounds positive. EXTREMITIES: No edema. NEUROLOGICAL: Currently sedated. HEENT: Atraumatic. LABS: Sodium 132, potassium 3.7, chloride 103, CO2 of 18, BUN 58, creatinine 2.48, glucose is 158. Calcium 8.1, phosphorus 4.1, magnesium 1.6. Cardiac enzymes negative x2. BNP is 506. Blood culture pending. Urine culture growing gram-negative chastity. CT abdomen and pelvis done yesterday in the emergency room showed no acute abnormalities. No hydronephrosis, obstructive stone, moderate perinephric stranding, which is nonspecific. Also had improved hepatic steatosis from prior. Chest x-ray done this morning, lungs are well inflated, left pleural effusion, 5 to 6 mm calcified granuloma in the right lower lung. Heart size normal. Pulmonary vasculature is normal. ASSESSMENT AND PLAN 1. Acute kidney injury, likely acute tubular necrosis secondary to sepsis. I have been followed up on all the cultures. Continue with antibiotic. Continue with IV fluid. Avoid all nephrotoxic medication. Check urine sodium and creatinine. 2. Gram-negative chastity, urinary tract infection, sepsis. IV fluid resuscitation. Continue with IV fluids. Continue with antibiotic. Follow up on all the cultures. 3. Coronary artery disease, status post coronary artery bypass graft with recent stent at [facility] Cardiology following. Echocardiogram is getting done. 4. History of head and neck cancer. No acute issues. 5. Anemia. We will check fecal occult blood, currently getting 2 units of PRBC, questionable GI bleed. 6. Acute respiratory failure. Dr. Whitney is following. I want to thank Dr. Whitney for the consult. We will follow the patient with you. Job#: [id number] RTY
[2018-08-22] MEDS ORDERED: HEPARIN 25,000 UNIT/D5W 250ML 250 ML IV SCH (20:00)
[2018-08-22] MEDS: ATORVASTATIN 20 MG TAB PO SCH (21:00)
[2018-08-22] MEDS ORDERED: NOREPINEPHRINE 8 MG/D5W 250 ML 250 ML IV PRN (21:00)
[2018-08-22] MEDS: CEFTRIAXONE SOD 1 GM VIAL IV SCH (21:24)
--- NOTE | 2018-08-22 23:41 | Consultation ---
NO DICTATION (00:08) Job#: [id number] VAS
[2018-08-23] VITALS (79 sets, daily range): BP systolic 83–151; BP diastolic 50–92
[2018-08-23] MEDS: SODIUM CHLORIDE 0.9% 1000ML 1,000 ML IV SCH ×4 (01:23→23:30)
[2018-08-23 04:47] LABS: BASOPHILS % 0.2 % (0.0-1.0); HEMATOCRIT 33.8 % (34.2-44.1); HEMOGLOBIN 11.4 g/dL (12.0-16.0); LYMPHOCYTES # (AUTO) 0.2 (1.0-3.2); MEAN CORPUSCULAR HEMOGLOBIN 29.8 pg (28-32); MEAN CORPUSCULAR HGB CONC 33.7 g/dL (31-35); MEAN CORPUSCULAR VOLUME 88.5 fL (81-99); MONOCYTES # (AUTO) 1.2 (0.2-0.8); MONOCYTES % 6.1 % (4.4-11.3); NEUTROPHILS # (AUTO) 18.4 (2.1-6.9); NEUTROPHILS % 91.5 % (38.7-80.0); PLATELET COUNT 132 x10e3/uL (140-360); RED BLOOD COUNT 3.82 x10e6/uL (3.6-5.1); RED CELL DISTRIBUTION WIDTH 18.7 % (11.7-14.4)
[2018-08-23 05:14] LABS: ALBUMIN 2.1 g/dL (3.5-5.0); ALBUMIN/GLOBULIN RATIO 0.7 (0.8-2.0); CALCIUM 8.4 mg/dL (8.4-10.2); CREATININE, SERUM 2.29 mg/dL (0.57-1.11); MAGNESIUM 1.8 MG/DL (1.3-2.1)
[2018-08-23] MEDS: LEVOTHYROXINE SODIUM 125 MCG TAB PO SCH (05:46)
[2018-08-23] MEDS: METRONIDAZOLE 500MG/NS 100ML 100 ML IV SCH ×3 (05:46→23:48)
--- NOTE | 2018-08-23 06:35 | Diagnostic Imaging Report ---
CHEST SINGLE (PORTABLE), 08/23/2018 4:07 AM Technique: CHEST SINGLE (PORTABLE) Comparison: 08/22/2018 Clinical history: Respiratory failure Findings: See Impression Impression: 1. Lines/Tubes: Stable right subclavian central venous catheter over the SVC and ET tube 1.5 cm above the tiffanie. 2. Stable cardiac silhouette post sternotomy. 3. Increased left greater than right bibasilar opacities, which may reflect layering pleural fluid and atelectasis/consolidation. Signed by: Dr Svetlana Hurd MD on 08/23/2018 6:32 AM
[2018-08-23] MEDS: FAMOTIDINE 20 MG TAB PO SCH ×2 (07:30→16:30)
[2018-08-23 08:38] LABS: BAND NEUTROPHILS % (MANUAL) 5 %; LYMPHOCYTES % (MANUAL) 1 % (19-48); MONOCYTES % (MANUAL) 10 % (3.4-9.0); NEUTROPHILS % (MANUAL) 84 % (40-74)
[2018-08-23 08:39] LABS: PLATELET ESTIMATE ADEQUATE; PLATELET MORPHOLOGY COMMENT NORMAL; RBC MORPHOLOGY COMMENT NORMAL
[2018-08-23] MEDS: PANTOPRAZOLE 40 MG 10ML VIAL IV SCH (09:00)
[2018-08-23] MEDS: FOLIC ACID 1 MG TAB PO SCH (09:00)
[2018-08-23] MEDS: MULTIVITAMINS/MINERALS TAB PO SCH (09:00)
[2018-08-23] MEDS: GABAPENTIN 100 MG CAP PO SCH ×3 (09:00→20:55)
[2018-08-23] MEDS: FERROUS SULFATE 325 MG TAB PO SCH ×3 (09:00→20:56)
[2018-08-23] MEDS ORDERED: ASPIRIN 81 MG CHEW TAB PO ONE (09:00)
[2018-08-23] MEDS: THIAMINE HCL 100 MG TAB PO SCH (09:00)
[2018-08-23] MEDS: CLOPIDOGREL BISULFATE 75 MG TAB PO SCH (09:00)
--- NOTE | 2018-08-23 09:58 | Consultation ---
DATE OF CONSULTATION: August 23, 2018 HISTORY OF PRESENT ILLNESS: Patient is a 73-year-old with history of coronary artery disease, history of head and neck cancer, history of coronary artery disease. Apparently, presented to the hospital because of shortness of breath and not feeling well. Patient subsequently was intubated and she was found to have significant anemia with hemoglobin apparently down to 7.2 yesterday. There is no signs of active bleeding at this point. She received blood transfusions and hemoglobin went up to 11.4. PAST MEDICAL HISTORY: Significant for history of cardiomyopathy, history of coronary artery disease, previous coronary artery bypass graft surgery in the past, previous stent, history of head and neck cancer, history of back pain and back surgery, chronic neuropathy, anxiety, hypothyroidism. SOCIAL HISTORY: Suppose to be a heavy drinker and smoker. FAMILY HISTORY: Unobtainable at this point. CURRENT MEDICATIONS: Including Flagyl, heparin drip, ceftriaxone, levothyroxine, gabapentin, iron, atorvastatin, Pepcid, thiamine, folic acid, Plavix, now is on pantoprazole also. ALLERGIES: HYDROMORPHONE. REVIEW OF SYSTEMS: At this point is unobtainable. Patient is intubated. PHYSICAL EXAMINATION GENERAL: Intubated, lying in bed, appears to be not in acute distress. VITAL SIGNS: Afebrile currently. HEAD, EYES, EARS, NOSE AND THROAT: Normocephalic and atraumatic. ET tube is in place. HEART: S1 and S2. Regular. LUNGS: Clear. ABDOMEN: Soft. No tenderness at this point. EXTREMITIES: No cyanosis or clubbing. LAB VALUES: As of this morning, WBC of 20,000, hemoglobin 11.4, hematocrit 33.8. BUN 60, creatinine of 2.29. PT yesterday was 16, INR 1.23. CAT scan of the abdomen and pelvis on admission was unremarkable. IMPRESSION 1. Anemia. There is no signs of active bleeding at this pint. 2. Respiratory failure. 3. Urinary tract infection and sepsis. 4. History of coronary artery disease. RECOMMENDATIONS: Continue current care at this point. Proton pump inhibitor. Follow labs. Monitor for possible bleeding. Job#: [id number] RAFAEL cc:DR. FIDELIA GUEVARA cc:DR. LOPEZ
--- NOTE | 2018-08-23 11:43 | Diagnostic Imaging Report ---
Abdomen/KUB INDICATION: Tube placement COMPARISON: CT abdomen/pelvis 08/21/2018. FINDINGS: Portable, supine image obtained at 1111 hours. Medical Devices: Enteric tube is looped in the fundus. Dash catheter is present. Bowel: No dilated bowel loops. There is enteric contrast in the large bowel from CT. Diverticulosis coli is present. No pneumatosis. Calcifications: None Organomegaly: None Lung bases: Retrocardiac airspace disease is similar Bones: Sclerotic vertebral bodies of the lower lumbar spine are stable with superimposed degenerative changes. Soft tissues: Unremarkable. IMPRESSION: Enteric tube as described above. Retrocardiac airspace opacity may be the result of atelectasis and pleural effusion or infiltrate. Signed by: Dr. Kirstin Squires MD on 08/23/2018 11:40 AM
[2018-08-23] MEDS ORDERED: CLOPIDOGREL BISULFATE 75 MG TAB PO ONE (13:30)
--- NOTE | 2018-08-23 18:42 | Progress Note ---
DATE: August 23, 2018 CARDIOLOGY PROGRESS NOTE SUBJECTIVE: Patient remains intubated. She is unresponsive, off sedation since this morning. Tolerating heparin drip overnight. OBJECTIVE VITAL SIGNS: Temperature 96.6 degrees, pulse 76, respiratory rate 14, blood pressure 104/56, oxygen saturation 100% on mechanical ventilation. GENERAL: Well-developed, well-nourished woman, in no acute distress, intubated. LUNGS: Clear to auscultation bilaterally. No wheezes or crackles. CARDIOVASCULAR: Normal rate, regular rhythm. Normal S1 and S2. ABDOMEN: Soft, nontender. EXTREMITIES: No edema. CARDIAC MEDICATIONS 1. Plavix 75 mg p.o. daily. 2. Levothyroxine 175 mcg p.o. daily. 3. Atorvastatin 40 mg p.o. at bedtime. 4. Aspirin 81 mg p.o. daily. LABS: WBC 20.08, hemoglobin 11.4, hematocrit 33.8, platelets 132. Sodium 137, potassium 4, chloride 110, CO2 of 16, BUN 60, creatinine 2.29. TELEMETRY: Normal sinus rhythm. IMPRESSION 1. Acute respiratory failure, currently intubated, suspect pneumonia. 2. Abnormal UA suggestive of urinary tract infection. 3. Paroxysmal atrial fibrillation with rapid ventricular response, currently sinus rhythm. 4. Acute kidney injury. 5. Heavy alcohol use. 6. Anemia. 7. Coronary artery disease, status post coronary artery bypass grafting and recent stent one week prior. 8. History of head and neck cancer, status post radiation with resulting dysphagia. 9. Hypothyroidism. RECOMMENDATIONS: No evidence of myocardial infarction on serial cardiac biomarkers. Patient's niece reports patient has not been on any antiplatelet therapy since her stent placement last week. We will therefore load Plavix again now that we have p.o. access. Continue aspirin. Continue current cardiac medications otherwise. Supportive care per primary service. Ventilatory management per pulmonary. Given current MEGAN, we will defer volume management to nephrology, although we will need to monitor volume status closely. She will likely need diuresis prior to discharge as she has been net positive. Thank you for this consult. We will continue to follow. Job#: [id number] VAS VANESSA
[2018-08-23] MEDS: ATORVASTATIN 20 MG TAB PO SCH (20:55)
[2018-08-23] MEDS: CEFTRIAXONE SOD 1 GM VIAL IV SCH (23:48)
[2018-08-24] VITALS (39 sets, daily range): BP systolic 97–141; BP diastolic 48–88
[2018-08-24 04:51] LABS: INR 1.19; PROTHROMBIN TIME 16.1 seconds (11.9-14.5)
[2018-08-24 05:06] LABS: ALBUMIN 1.8 g/dL (3.5-5.0); ALBUMIN/GLOBULIN RATIO 0.7 (0.8-2.0); ANION GAP 12.2 mmol/L (8-16); CALCIUM 8.1 mg/dL (8.4-10.2); CREATININE, SERUM 1.86 mg/dL (0.57-1.11); POTASSIUM 3.2 mmol/L (3.5-5.1)
[2018-08-24] MEDS: SODIUM CHLORIDE 0.9% 1000ML 1,000 ML IV SCH ×3 (05:51→17:55)
[2018-08-24] MEDS: LEVOTHYROXINE SODIUM 125 MCG TAB PO SCH (05:52)
[2018-08-24] MEDS: METRONIDAZOLE 500MG/NS 100ML 100 ML IV SCH ×3 (05:52→21:36)
--- NOTE | 2018-08-24 06:39 | Diagnostic Imaging Report ---
CHEST SINGLE (PORTABLE), 08/24/2018 7:00 AM Technique: CHEST SINGLE (PORTABLE) Comparison: Previous day Clinical history: Intubated Findings: See Impression Impression: 1. Lines/Tubes: Subdiaphragmatic NG tube with tip looped within the stomach. Stable right subclavian central venous catheter over the SVC, ET tube just above the tiffanie (1 cm). 2. Stable cardiac silhouette post sternotomy. 3. Persistent bibasilar opacities, which may reflect layering pleural fluid and atelectasis/consolidation. Signed by: Dr Svetlana Hurd MD on 08/24/2018 6:35 AM
[2018-08-24] MEDS: FAMOTIDINE 20 MG TAB PO SCH ×2 (07:30→16:54)
[2018-08-24] MEDS: CLOPIDOGREL BISULFATE 75 MG TAB PO SCH ×2 (07:56→09:02)
[2018-08-24] MEDS: ASPIRIN 81 MG CHEW TAB PO SCH (09:01)
[2018-08-24] MEDS: PANTOPRAZOLE 40 MG 10ML VIAL IV SCH (09:01)
[2018-08-24] MEDS: GABAPENTIN 100 MG CAP PO SCH ×3 (09:02→21:36)
[2018-08-24] MEDS: FERROUS SULFATE 325 MG TAB PO SCH ×2 (09:02→21:36)
[2018-08-24] MEDS: FOLIC ACID 1 MG TAB PO SCH (09:02)
[2018-08-24] MEDS: THIAMINE HCL 100 MG TAB PO SCH (09:02)
[2018-08-24] MEDS: MULTIVITAMINS/MINERALS TAB PO SCH (09:02)
[2018-08-24] MEDS ORDERED: ALPRAZOLAM 0.25 MG TAB PO PRN (16:30)
[2018-08-24] MEDS ORDERED: POTASSIUM CHLORIDE 20 MEQ TAB CR PO ONE (16:45)
[2018-08-24] MEDS: BALSAM PERU/CASTOR OIL 60 GM OINT...G. TP SCH (16:58)
[2018-08-24 19:51] LABS: CREATININE,URINE RANDOM 28.97 mg/dL (47-110)
[2018-08-24] MEDS: ATORVASTATIN 40 MG TAB PO SCH (21:36)
[2018-08-24] MEDS: CEFTRIAXONE SOD 1 GM VIAL IV SCH (21:36)
--- NOTE | 2018-08-24 23:00 | Progress Note ---
DATE: August 24, 2018 CARDIOLOGY PROGRESS NOTE SUBJECTIVE: Remains intubated, sedation turned off since yesterday. Patient is starting to wake up now. OBJECTIVE VITAL SIGNS: Temperature afebrile, heart rate 85, blood pressure 145/92, intubated satting 98% on 40% FiO2. GENERAL: Elderly white female, intubated and sedated. CARDIOVASCULAR: Regular rate and rhythm. No murmurs, rubs or gallops. Palpable carotid pulses. Palpable radial pulses. 2+ lower extremity edema. LUNGS: Mechanical breath sounds, coarse bilaterally. ABDOMEN: Soft, nondistended. NEURO AND PSYCH: Patient is intubated and sedated, awakens to light touch and stimulation, not following commands. CARDIOVASCULAR MEDICATIONS: Reviewed. LABORATORY DATA: Reviewed. TELEMETRY DATA: Reviewed, shows normal sinus rhythm. ASSESSMENT AND PLAN 1. Acute hypoxic respiratory failure. 2. Altered mental status. 3. Coronary artery disease, status post recent stents. 4. Sepsis. 5. Gram-negative urinary tract infection. PLAN: Continue current cardiac medications. No further cardiac workup needed at this time. Awaiting mental status to improve, so patient can be extubated. Continue aspirin and Plavix. Thank you for this consult. Continue to follow. Job#: [id number] CQ
[2018-08-25] VITALS (33 sets, daily range): BP systolic 100–143; BP diastolic 34–78
[2018-08-25 05:00] LABS: BASOPHILS % 0.2 % (0.0-1.0); EOSINOPHILS # (AUTO) 0.1 (0.0-0.4); EOSINOPHILS % 0.5 % (0.0-6.0); HEMATOCRIT 31.4 % (34.2-44.1); HEMOGLOBIN 10.7 g/dL (12.0-16.0); LYMPHOCYTES # (AUTO) 0.4 (1.0-3.2); LYMPHOCYTES % 3.3 % (18.0-39.1); MEAN CORPUSCULAR HEMOGLOBIN 29.9 pg (28-32); MEAN CORPUSCULAR HGB CONC 34.1 g/dL (31-35); MEAN CORPUSCULAR VOLUME 87.7 fL (81-99); MONOCYTES # (AUTO) 1.3 (0.2-0.8); MONOCYTES % 10.8 % (4.4-11.3); NEUTROPHILS % 83.8 % (38.7-80.0); PLATELET COUNT 105 x10e3/uL (140-360); RED BLOOD COUNT 3.58 x10e6/uL (3.6-5.1); RED CELL DISTRIBUTION WIDTH 19.8 % (11.7-14.4)
[2018-08-25 05:19] LABS: ANION GAP 11.3 mmol/L (8-16); CALCIUM 8.5 mg/dL (8.4-10.2); CREATININE, SERUM 1.37 mg/dL (0.57-1.11); POTASSIUM 3.3 mmol/L (3.5-5.1)
[2018-08-25] MEDS: SODIUM CHLORIDE 0.9% 1000ML 1,000 ML IV SCH ×2 (05:23→15:30)
[2018-08-25] MEDS: LEVOTHYROXINE SODIUM 125 MCG TAB PO SCH (05:47)
[2018-08-25] MEDS: METRONIDAZOLE 500MG/NS 100ML 100 ML IV SCH ×3 (05:47→21:38)
--- NOTE | 2018-08-25 07:49 | Diagnostic Imaging Report ---
EXAM: CHEST SINGLE (PORTABLE), AP Portable DATE: 08/25/2018 Time stamp on exam: 5:34 AM INDICATION: Intubated patient COMPARISON: 08/24/2018 FINDINGS: LINES/TUBES: Unchanged position of endotracheal tube, right subclavian central line and nasogastric tube that is looped upon itself with the tip extending near the GE junction. Multiple sternotomy sutures. LUNGS: Right midlung zone atelectasis. Left retrocardiac opacity likely atelectatic in nature. PLEURA: Moderate bilateral pleural effusions; left greater than right. HEART AND MEDIASTINUM: Normal size and contour. BONES AND SOFT TISSUES: No acute findings. IMPRESSION: No significant interval change. Signed by: Dr. Polo Paul DO on 08/25/2018 7:45 AM
[2018-08-25] MEDS: ASPIRIN 81 MG CHEW TAB PO SCH (08:41)
[2018-08-25] MEDS: PANTOPRAZOLE 40 MG 10ML VIAL IV SCH (08:41)
[2018-08-25] MEDS: MULTIVITAMINS/MINERALS TAB PO SCH (08:41)
[2018-08-25] MEDS: FERROUS SULFATE 325 MG TAB PO SCH ×2 (08:41→21:37)
[2018-08-25] MEDS: BALSAM PERU/CASTOR OIL 60 GM OINT...G. TP SCH ×2 (08:41→16:21)
[2018-08-25] MEDS: FAMOTIDINE 20 MG TAB PO SCH ×2 (08:41→18:18)
[2018-08-25] MEDS: GABAPENTIN 100 MG CAP PO SCH (08:41)
[2018-08-25] MEDS: THIAMINE HCL 100 MG TAB PO SCH (08:41)
[2018-08-25] MEDS: CLOPIDOGREL BISULFATE 75 MG TAB PO SCH ×2 (08:41)
[2018-08-25] MEDS: FOLIC ACID 1 MG TAB PO SCH (08:41)
[2018-08-25] MEDS ORDERED: POTASSIUM CHLORIDE 20 MEQ TAB CR PO PRN (13:45)
[2018-08-25] MEDS: POTASSIUM CHLORIDE 20MEQ/15ML UDC NG PRN (16:02)
--- NOTE | 2018-08-25 16:14 | Progress Note ---
DATE: August 25, 2018 CARDIOLOGY PROGRESS NOTE SUBJECTIVE: Remains intubated and sedated. OBJECTIVE VITAL SIGNS: Temperature 99.5, pulse 84, respiratory rate 14, blood pressure 116/66, saturating 99% on 40% FiO2 mechanical ventilation. GENERAL: A well-nourished, well-developed woman in no acute distress, intubated. CARDIOVASCULAR: Regular rate and rhythm. No murmurs, rubs or gallops. Palpable carotid pulses. Palpable radial pulses. LUNGS: Mechanical breath sounds coarse bilaterally. No obvious, wheezes or crackles. ABDOMEN: Soft, nondistended. No masses. EXTREMITIES: No edema. CARDIOVASCULAR MEDICATIONS: Reviewed. LABORATORY DATA: Reviewed. TELEMETRY DATA: Reviewed. Shows normal sinus rhythm with occasional PVCs. ASSESSMENT AND PLAN: 1. Acute respiratory failure currently intubated, suspected pneumonia. 2. Gram negative urinary tract infection. 3. Paroxysmal atrial fibrillation with rapid ventricular response, currently in sinus rhythm. 4. Acute kidney injury. 5. Heavy alcohol use. 6. Anemia. 7. Coronary artery disease, status post coronary artery bypass grafting and recent stent. 8. History of head and neck cancer, status post radiation with resulting dysphagia. 9. Hypothyroidism. PLAN: No evidence of MO on serial cardiac markers. The patient's niece reports that the patient has been noncompliant with her dual antiplatelet therapy. Continue on aspirin and Plavix for now while she is in the hospital. Supportive care per primary team. Remains in normal sinus rhythm. Thank you for this consult. Will continue to follow. Job#: [id number]
[2018-08-25] MEDS: CEFTRIAXONE SOD 1 GM VIAL IV SCH (21:38)
[2018-08-25] MEDS: ATORVASTATIN 40 MG TAB PO SCH (21:38)
[2018-08-26] VITALS (24 sets, daily range): BP systolic 98–160; BP diastolic 47–96
[2018-08-26 04:35] LABS: BASOPHILS % 0.2 % (0.0-1.0); EOSINOPHILS # (AUTO) 0.1 (0.0-0.4); EOSINOPHILS % 1.1 % (0.0-6.0); HEMATOCRIT 30.9 % (34.2-44.1); HEMOGLOBIN 10.3 g/dL (12.0-16.0); LYMPHOCYTES # (AUTO) 0.4 (1.0-3.2); LYMPHOCYTES % 3.2 % (18.0-39.1); MEAN CORPUSCULAR HEMOGLOBIN 29.3 pg (28-32); MEAN CORPUSCULAR HGB CONC 33.3 g/dL (31-35); MONOCYTES # (AUTO) 1.1 (0.2-0.8); MONOCYTES % 8.6 % (4.4-11.3); NEUTROPHILS # (AUTO) 11.1 (2.1-6.9); NEUTROPHILS % 85.4 % (38.7-80.0); PLATELET COUNT 134 x10e3/uL (140-360); RED BLOOD COUNT 3.51 x10e6/uL (3.6-5.1)
[2018-08-26 04:56] LABS: ANION GAP 13.1 mmol/L (8-16); CALCIUM 8.6 mg/dL (8.4-10.2); CREATININE, SERUM 0.95 mg/dL (0.57-1.11); POTASSIUM 3.1 mmol/L (3.5-5.1)
[2018-08-26] MEDS: LEVOTHYROXINE SODIUM 125 MCG TAB PO SCH (06:17)
[2018-08-26] MEDS: METRONIDAZOLE 500MG/NS 100ML 100 ML IV SCH ×3 (06:17→21:39)
--- NOTE | 2018-08-26 06:33 | Diagnostic Imaging Report ---
EXAM: CHEST SINGLE (PORTABLE), AP 1 view INDICATION: Intubated COMPARISON: AP view of the chest August 25, 2018 FINDINGS: LINES/TUBES: Stable position of right subclavian central line, endotracheal tube and nasal/orogastric tube. LUNGS: Stable left retrocardiac opacification. PLEURA: Stable bilateral pleural effusions. HEART AND MEDIASTINUM: Stable enlargement of the bilateral iraida. BONES AND SOFT TISSUES: Stable sternotomy wires. IMPRESSION: No interval change. Signed by: Dr. Mallorie Samano M.D. on 08/26/2018 6:30 AM
[2018-08-26] MEDS ORDERED: GABAPENTIN 100 MG CAP PO SCH ×2 (08:00→16:30)
[2018-08-26] MEDS: FAMOTIDINE 20 MG TAB PO SCH ×2 (08:14→16:57)
[2018-08-26] MEDS: FERROUS SULFATE 325 MG TAB PO SCH ×2 (08:17→20:39)
[2018-08-26] MEDS: THIAMINE HCL 100 MG TAB PO SCH (08:17)
[2018-08-26] MEDS: POTASSIUM CHLORIDE 20MEQ/15ML UDC NG PRN (08:17)
[2018-08-26] MEDS: FOLIC ACID 1 MG TAB PO SCH (08:18)
[2018-08-26] MEDS: ASPIRIN 81 MG CHEW TAB PO SCH (08:18)
[2018-08-26] MEDS: MULTIVITAMINS/MINERALS TAB PO SCH (08:18)
[2018-08-26] MEDS: BALSAM PERU/CASTOR OIL 60 GM OINT...G. TP SCH ×2 (08:18→16:57)
[2018-08-26] MEDS: CLOPIDOGREL BISULFATE 75 MG TAB PO SCH (08:18)
[2018-08-26] MEDS: PANTOPRAZOLE 40 MG 10ML VIAL IV SCH (08:18)
[2018-08-26] MEDS ORDERED: POTASSIUM CHLORIDE 20MEQ/15ML UDC NG STA (08:45)
[2018-08-26] MEDS ORDERED: FUROSEMIDE INJ 10 MG/ML 2 ML VIAL IV ONE (08:45)
[2018-08-26 10:19] LABS: ABG HCO3 19 mmol/L (23-28); ABG PCO2 30 mmHg (41-51); ABG PH 7.41 (7.31-7.41); ABG PO2 87 mmHg (80-105)
--- NOTE | 2018-08-26 20:05 | Progress Note ---
DATE: August 26, 2018 CARDIOLOGY PROGRESS NOTE SUBJECTIVE: No major events overnight. Remains intubated and sedated. OBJECTIVE VITAL SIGNS: Temperature 99.6, pulse 90, respiratory rate 24, blood pressure 122/59, satting 99% on mechanical ventilation. GENERAL: Elderly white female intubated. CARDIOVASCULAR: Regular rate and rhythm. No murmurs, rubs or gallops. Palpable carotid pulses. Palpable radial pulses. LUNGS: Mechanical breath sounds coarse. ABDOMEN: Soft and nondistended. NEURO AND PSYCH: Patient is intubated. Awakens to light touch and verbal stimulation. Not following all commands. CARDIOVASCULAR MEDICATIONS: Reviewed. LABORATORY DATA: Reviewed. Telemetry data reviewed. Shows normal sinus rhythm. ASSESSMENT AND PLAN 1. Acute hypoxic respiratory failure. 2. Altered mental status. 3. Coronary artery disease: Status post recent stent. 4. Sepsis. 5. Gram-negative urinary tract infection. PLAN: Continue current cardiac medications. Awaiting extubation. Thank you for this consult. Will continue to follow. Job#: [id number] MD
[2018-08-26] MEDS: ATORVASTATIN 40 MG TAB PO SCH (20:39)
[2018-08-26] MEDS: ACETAMINOPHEN 325 MG TAB PO PRN (20:40)
[2018-08-26] MEDS: CEFTRIAXONE SOD 1 GM VIAL IV SCH (22:30)
[2018-08-27] VITALS (25 sets, daily range): BP systolic 123–182; BP diastolic 63–118
[2018-08-27 05:10] LABS: ANION GAP 13.2 mmol/L (8-16); BLOOD UREA NITROGEN 34 mg/dL (7-26); BUN/CREATININE RATIO 43 (6-25); CALCIUM 8.9 mg/dL (8.4-10.2); CARBON DIOXIDE 24 mmol/L (22-29); CHLORIDE 113 mmol/L (98-107); CREATININE, SERUM 0.79 mg/dL (0.57-1.11); EST GLOMERULAR FILTRATION RATE > 60 ML/MIN (60-); GLUCOSE 130 mg/dL (74-118); MAGNESIUM 1.3 MG/DL (1.3-2.1); POTASSIUM 3.2 mmol/L (3.5-5.1); SODIUM 147 mmol/L (136-145)
[2018-08-27] MEDS: METRONIDAZOLE 500MG/NS 100ML 100 ML IV SCH ×3 (05:58→21:45)
[2018-08-27] MEDS: LEVOTHYROXINE SODIUM 100 MCG TAB PO SCH (06:00)
[2018-08-27] MEDS: LEVOTHYROXINE SODIUM 75 MCG TAB PO SCH (06:00)
--- NOTE | 2018-08-27 06:39 | Diagnostic Imaging Report ---
EXAM: CHEST SINGLE (PORTABLE), AP 1 view INDICATION: Intubated COMPARISON: AP view of the chest August 26, 2018 FINDINGS: LINES/TUBES: Stable position of right subclavian central line, endotracheal tube and nasal/orogastric tube. LUNGS: Stable left retrocardiac opacity. PLEURA: Small bilateral pleural effusions. HEART AND MEDIASTINUM: Stable enlargement of the bilateral iraida, right greater than left. Stable cardiac size. BONES AND SOFT TISSUES: No acute findings. IMPRESSION: No interval change in appearance of the chest. Right hilar enlargement is of uncertain etiology. Signed by: Dr. Mallorie Samano M.D. on 08/27/2018 6:36 AM
[2018-08-27] MEDS: THIAMINE HCL 100 MG TAB PO SCH (09:48)
[2018-08-27] MEDS: CLOPIDOGREL BISULFATE 75 MG TAB PO SCH (09:48)
[2018-08-27] MEDS: BALSAM PERU/CASTOR OIL 60 GM OINT...G. TP SCH ×2 (09:48→16:20)
[2018-08-27] MEDS: HEPARIN SOD (PORCINE) 5,000 UNIT/ML VIAL SC SCH ×2 (09:49→21:46)
[2018-08-27] MEDS: FAMOTIDINE 20 MG TAB PO SCH ×2 (09:49→16:24)
[2018-08-27] MEDS: PANTOPRAZOLE 40 MG 10ML VIAL IV SCH (09:49)
[2018-08-27] MEDS: ASPIRIN 81 MG CHEW TAB PO SCH (09:49)
[2018-08-27] MEDS: FOLIC ACID 1 MG TAB PO SCH (09:49)
[2018-08-27] MEDS: MULTIVITAMINS/MINERALS TAB PO SCH (09:49)
[2018-08-27] MEDS: FERROUS SULFATE 325 MG TAB PO SCH ×2 (09:49→21:44)
[2018-08-27] MEDS: POTASSIUM CHLORIDE 20MEQ/15ML UDC NG PRN (09:50)
[2018-08-27] MEDS: ONDANSETRON HCL INJ 2 MG/ML VIAL IV PRN (16:24)
[2018-08-27] MEDS: ACETAMINOPHEN 325 MG TAB PO PRN (16:24)
--- NOTE | 2018-08-27 20:47 | Progress Note ---
DATE: August 27, 2018 CARDIOLOGY PROGRESS NOTE SUBJECTIVE: Patient was extubated this morning. Doing well, resting comfortably. OBJECTIVE: VITAL SIGNS: Please see medical record. GENERAL: Elderly white female, in no acute distress, well developed, well nourished. CARDIOVASCULAR: Regular rate and rhythm. No murmurs, rubs, or gallops. Palpable carotid pulses. Palpable radial pulses. LUNGS: Clear to auscultation bilaterally. ABDOMEN: Soft, nontender, nondistended. Normal bowel sounds. NEURO AND PSYCH: Patient is sleeping comfortably, but arousable. Alert and oriented to person and place, not time. CARDIOVASCULAR MEDICATIONS: Reviewed. LABORATORY DATA: Reviewed. TELEMETRY DATA: Reviewed, shows normal sinus rhythm. ASSESSMENT: 1. Coronary artery disease, status post recent percutaneous coronary intervention. 2. Acute hypoxemic respiratory failure likely secondary to pneumonia. 3. Extended-spectrum beta-lactamase urinary tract infection. 4. Severe sepsis. 5. Alcohol abuse. 6. Medical noncompliance. PLAN: Continue current cardiovascular medications including aspirin and Plavix. Patient has done well overall from a cardiovascular standpoint despite being noncompliance with her dual antiplatelet therapy at home. Will have a long discussion with patient once she is awake and alert after extubation today. Thank you for this consult. Will continue to follow. Job#: [id number]
[2018-08-27] MEDS: ATORVASTATIN 40 MG TAB PO SCH (21:44)
[2018-08-27] MEDS: CEFTRIAXONE SOD 1 GM VIAL IV SCH (22:12)
[2018-08-28] VITALS (30 sets, daily range): BP systolic 125–162; BP diastolic 52–99
[2018-08-28 04:30] LABS: BASOPHILS % 0.3 % (0.0-1.0); EOSINOPHILS # (AUTO) 0.3 (0.0-0.4); EOSINOPHILS % 2.1 % (0.0-6.0); HEMATOCRIT 31.3 % (34.2-44.1); HEMOGLOBIN 10.4 g/dL (12.0-16.0); LYMPHOCYTES # (AUTO) 0.6 (1.0-3.2); LYMPHOCYTES % 3.6 % (18.0-39.1); MEAN CORPUSCULAR HEMOGLOBIN 29.7 pg (28-32); MEAN CORPUSCULAR HGB CONC 33.2 g/dL (31-35); MEAN CORPUSCULAR VOLUME 89.4 fL (81-99); MONOCYTES # (AUTO) 1.1 (0.2-0.8); MONOCYTES % 7.2 % (4.4-11.3); NEUTROPHILS # (AUTO) 13.4 (2.1-6.9); NEUTROPHILS % 85.8 % (38.7-80.0); PLATELET COUNT 202 x10e3/uL (140-360); RED CELL DISTRIBUTION WIDTH 20.6 % (11.7-14.4)
[2018-08-28 04:53] LABS: ALANINE AMINOTRANSFERASE 10 IU/L (0-55); ALBUMIN 1.6 g/dL (3.5-5.0); ALBUMIN/GLOBULIN RATIO 0.6 (0.8-2.0); ALKALINE PHOSPHATASE 67 IU/L (40-150); ANION GAP 9.6 mmol/L (8-16); BLOOD UREA NITROGEN 21 mg/dL (7-26); BUN/CREATININE RATIO 37 (6-25); CALCIUM 7.4 mg/dL (8.4-10.2); CARBON DIOXIDE 23 mmol/L (22-29); CHLORIDE 121 mmol/L (98-107); CREATININE, SERUM 0.57 mg/dL (0.57-1.11); EST GLOMERULAR FILTRATION RATE > 60 ML/MIN (60-); GLUCOSE 103 mg/dL (74-118); SODIUM 151 mmol/L (136-145)
[2018-08-28 05:14] LABS: POTASSIUM 2.6 mmol/L (3.5-5.1)
[2018-08-28] MEDS: LEVOTHYROXINE SODIUM 100 MCG TAB PO SCH (05:23)
[2018-08-28] MEDS: METRONIDAZOLE 500MG/NS 100ML 100 ML IV SCH ×3 (05:23→22:00)
[2018-08-28] MEDS: LEVOTHYROXINE SODIUM 75 MCG TAB PO SCH (05:23)
[2018-08-28] MEDS: POTASSIUM CHLORIDE 20MEQ/15ML UDC NG PRN (05:34)
[2018-08-28] MEDS ORDERED: SODIUM CHLORIDE 0.9% 50ML 50 ML ONE (07:14)
[2018-08-28] MEDS ORDERED: IOPAMIDOL 370 MG/ML 200 ML INFUS..BTL INJ ONE (07:14)
--- NOTE | 2018-08-28 07:56 | Diagnostic Imaging Report ---
PROCEDURE: CT scan of the chest WITH intravenous contrast, using standard protocol. TECHNIQUE: The chest was scanned utilizing a multidetector helical scanner from the lung apex through the level of the adrenal glands after the IV administration of 100 cc of Isovue 370. Coronal and sagittal multiplanar reformations were obtained. COMPARISON: Chest radiograph 08/27/18, CT Abdomen/Pelvis 08/21/18. INDICATIONS: ADENOPATHY FINDINGS: Lines/tubes: Right subclavian central line terminates in the lower SVC. Interval extubation. Enteric tube courses into the stomach, the tip is not seen. Lungs and Airways: Mucoid impaction within left lower lobe bronchi. There are some secretions within the trachea. There is bilateral smooth interlobular septal thickening. Left lower lobe atelectasis and subsegmental atelectasis in the right lower lobe. Scattered dependent atelectatic changes. Evaluation for lung nodules is limited. There is a 4 mm solid pulmonary nodule in the left lower lobe on series 3, image 85. A 4 mm solid pulmonary nodule in the right upper lobe on image 31. Cluster of nodules measuring up to 4 mm in the right lower lobe on series 2, image 60. Calcified granulomas in the left upper lobe and right lower lobe. Pleura: Moderate left and small right pleural effusions. Heart and mediastinum: The thyroid gland is normal. No significant mediastinal, hilar or axillary lymphadenopathy is seen. Mildly prominent paratracheal lymph nodes measuring up to 7 mm short axis, likely reactive. Calcified hilar and peribronchial lymph nodes. Extensive atherosclerosis of the coronary arteries, aorta, and great vessels. Four chamber cardiomegaly. Mitral annular calcifications. No pericardial effusion. Prominence of the right and left pulmonary arteries, which could represent pulmonary arterial hypertension. Soft tissues: Diffuse anasarca. Abdomen: Limited contrast-enhanced views of the upper abdomen demonstrate calcified hepatic and splenic granulomas and small volume ascites. Partially visualized adrenal glands appear unremarkable. Pancreatic atrophy. Non-specific mild left perinephric stranding, partially visualized. Bones: No acute bony findings. Mild degenerative disc changes in the spine. Status post median sternotomy. IMPRESSION: No evidence of hilar lymphadenopathy or mass. Hilar prominence likely secondary to prominent pulmonary arteries, suggestive of pulmonary arterial hypertension. Cardiomegaly with findings of pulmonary interstitial edema, moderate left and small right pleural effusions. Mucoid impaction in the left lower lobe with associated consolidation and volume loss, likely atelectasis. Superimposed aspiration or pneumonia are possible in the appropriate clinical setting. Subsegmental atelectasis in the right lower lobe. Scattered solid nodules measuring up to 4 mm, which may be infectious or inflammatory. In a low risk patient, no routine follow-up is required. If there is a high risk for malignancy, an optional follow-up chest CT in 12 months may be considered. Findings of prior granulomatous disease with calcified pulmonary nodules, hilar lymph nodes, and hepatic/splenic granulomas. Dictated by: VIN GARCIA M.D. on 08/28/2018 at 8:05 Electronically approved by: VIN GARCIA M.D. on 08/28/2018 at 8:05
[2018-08-28] MEDS: FAMOTIDINE 20 MG TAB PO SCH ×2 (07:59→16:30)
[2018-08-28] MEDS ORDERED: POTASSIUM CHLORIDE 10MEQ EA PO NR (08:45)
[2018-08-28] MEDS ORDERED: POTASSIUM CHLORIDE 20MEQ/100ML 200 ML IV ONE (08:45)
[2018-08-28] MEDS: ASPIRIN 81 MG CHEW TAB PO SCH (09:00)
[2018-08-28] MEDS: FERROUS SULFATE 325 MG TAB PO SCH ×2 (09:00→20:19)
[2018-08-28] MEDS: HEPARIN SOD (PORCINE) 5,000 UNIT/ML VIAL SC SCH ×2 (09:00→20:20)
[2018-08-28] MEDS: THIAMINE HCL 100 MG TAB PO SCH (09:00)
[2018-08-28] MEDS: PANTOPRAZOLE 40 MG 10ML VIAL IV SCH (09:00)
[2018-08-28] MEDS: MULTIVITAMINS/MINERALS TAB PO SCH (09:00)
[2018-08-28] MEDS: FOLIC ACID 1 MG TAB PO SCH (09:00)
[2018-08-28] MEDS: CLOPIDOGREL BISULFATE 75 MG TAB PO SCH (09:00)
[2018-08-28] MEDS: BALSAM PERU/CASTOR OIL 60 GM OINT...G. TP SCH ×2 (10:05→17:12)
--- NOTE | 2018-08-28 13:08 | Progress Note ---
DATE: August 28, 2018 CARDIOVASCULAR PROGRESS NOTE: SUBJECTIVE: No major events overnight. Was extubated yesterday and is doing well since then. OBJECTIVE: VITAL SIGNS: Temperature 99.0, pulse 84, respiratory rate 16, blood pressure 140/62, pulse oximetry 98% on 2 liters nasal cannula. GENERAL: Elderly white female in no acute distress. Well developed, well nourished. CARDIOVASCULAR: Regular rate and rhythm. No murmurs, rubs or gallops. Palpable carotid pulses. Palpable radial pulses. LUNGS: Clear to auscultation bilaterally. ABDOMEN: Soft, nontender, nondistended. Normal bowel sounds. NEURO AND PSYCH: Patient is alert and oriented to person, place, but not time. Sleepy but arousable. CARDIOVASCULAR MEDICATIONS: Reviewed. LABORATORY DATA: Reviewed. TELEMETRY DATA: Reviewed. ASSESSMENT AND PLAN: 1. Coronary artery disease, status post recent percutaneous coronary intervention. 2. Acute hypoxemic respiratory failure likely secondary to pneumonia. 3. Extended-spectrum beta-lactamase urinary tract infection. 4. Severe sepsis. 5. Alcohol abuse. 6. Medical noncompliance. PLAN: Continue current cardiovascular medications including aspirin and Plavix. Overall doing well from cardiovascular standpoint. Thank you for this consult. Will continue to follow. Job#: [id number] KAYLA
[2018-08-28 17:05] LABS: ANION GAP 10.9 mmol/L (8-16); BLOOD UREA NITROGEN 20 mg/dL (7-26); BUN/CREATININE RATIO 28 (6-25); CALCIUM 9.2 mg/dL (8.4-10.2); CARBON DIOXIDE 28 mmol/L (22-29); CHLORIDE 116 mmol/L (98-107); CREATININE, SERUM 0.71 mg/dL (0.57-1.11); EST GLOMERULAR FILTRATION RATE > 60 ML/MIN (60-); GLUCOSE 144 mg/dL (74-118); POTASSIUM 3.9 mmol/L (3.5-5.1); SODIUM 151 mmol/L (136-145)
[2018-08-28] MEDS: ATORVASTATIN 40 MG TAB PO SCH (20:19)
[2018-08-29] VITALS (27 sets, daily range): BP systolic 130–168; BP diastolic 65–103
[2018-08-29 04:29] LABS: BASOPHILS % 0.2 % (0.0-1.0); EOSINOPHILS # (AUTO) 0.3 (0.0-0.4); EOSINOPHILS % 1.7 % (0.0-6.0); HEMATOCRIT 30.5 % (34.2-44.1); HEMOGLOBIN 9.8 g/dL (12.0-16.0); LYMPHOCYTES # (AUTO) 0.7 (1.0-3.2); LYMPHOCYTES % 4.2 % (18.0-39.1); MEAN CORPUSCULAR HEMOGLOBIN 29.3 pg (28-32); MEAN CORPUSCULAR HGB CONC 32.1 g/dL (31-35); MONOCYTES # (AUTO) 1.4 (0.2-0.8); MONOCYTES % 8.4 % (4.4-11.3); NEUTROPHILS # (AUTO) 13.8 (2.1-6.9); NEUTROPHILS % 84.5 % (38.7-80.0); PLATELET COUNT 243 x10e3/uL (140-360); RED BLOOD COUNT 3.35 x10e6/uL (3.6-5.1); RED CELL DISTRIBUTION WIDTH 20.8 % (11.7-14.4)
[2018-08-29 04:49] LABS: ANION GAP 12.4 mmol/L (8-16); BLOOD UREA NITROGEN 18 mg/dL (7-26); BUN/CREATININE RATIO 26 (6-25); CALCIUM 8.9 mg/dL (8.4-10.2); CARBON DIOXIDE 27 mmol/L (22-29); CHLORIDE 114 mmol/L (98-107); CREATININE, SERUM 0.68 mg/dL (0.57-1.11); EST GLOMERULAR FILTRATION RATE > 60 ML/MIN (60-); GLUCOSE 163 mg/dL (74-118); MAGNESIUM 1.2 MG/DL (1.3-2.1); POTASSIUM 3.4 mmol/L (3.5-5.1); SODIUM 150 mmol/L (136-145)
[2018-08-29] MEDS: LEVOTHYROXINE SODIUM 100 MCG TAB PO SCH (05:04)
[2018-08-29] MEDS: METRONIDAZOLE 500MG/NS 100ML 100 ML IV SCH (05:04)
[2018-08-29] MEDS: LEVOTHYROXINE SODIUM 75 MCG TAB PO SCH (05:04)
[2018-08-29] MEDS: FAMOTIDINE 20 MG TAB PO SCH ×2 (07:30→16:30)
[2018-08-29] MEDS ORDERED: POTASSIUM CHLORIDE 20 MEQ TAB CR PO NR (08:35)
[2018-08-29] MEDS: FOLIC ACID 1 MG TAB PO SCH (09:00)
[2018-08-29] MEDS: FERROUS SULFATE 325 MG TAB PO SCH ×2 (09:00→20:39)
[2018-08-29] MEDS: HEPARIN SOD (PORCINE) 5,000 UNIT/ML VIAL SC SCH ×2 (09:00→20:42)
[2018-08-29] MEDS: PANTOPRAZOLE 40 MG 10ML VIAL IV SCH (09:00)
[2018-08-29] MEDS: ASPIRIN 81 MG CHEW TAB PO SCH (09:00)
[2018-08-29] MEDS: THIAMINE HCL 100 MG TAB PO SCH (09:00)
[2018-08-29] MEDS: MULTIVITAMINS/MINERALS TAB PO SCH (09:00)
[2018-08-29] MEDS: CLOPIDOGREL BISULFATE 75 MG TAB PO SCH (09:00)
[2018-08-29] MEDS: BALSAM PERU/CASTOR OIL 60 GM OINT...G. TP SCH ×2 (09:47→17:01)
[2018-08-29] MEDS: LOSARTAN POTASSIUM 25 MG TAB PO SCH (11:00)
[2018-08-29] MEDS: CEFEPIME HCL 1 GM VIAL IV SCH ×2 (11:00→22:50)
--- NOTE | 2018-08-29 11:31 | Diagnostic Imaging Report ---
EXAM: XR CHEST 1 VIEW DATE: 08/29/2018 10:06 AM INDICATION: Altered mental status, intubation COMPARISON: 08/27/2018, no report available FINDINGS: Lines and Tubes: ET tube removed. Right subclavian central venous catheter tip overlying SVC and NG tube coursing below GE junction stable. Heart and Mediastinum: Stable sternotomy changes. Heart not enlarged. Lungs and Pleura: New moderate bibasilar pleural-parenchymal opacities. Granuloma right lung base. Nodular density left midlung obscured. Bones and Soft Tissues: No acute findings. IMPRESSION: 1. New/worsening bibasilar opacities likely combination of pleural fluid with atelectasis, edema, and/or pneumonia. Signed by: Dr. Matthew Lepe MD on 08/29/2018 11:28 AM
--- NOTE | 2018-08-29 11:46 | Progress Note ---
DATE: August 29, 2018 CARDIOLOGY PROGRESS NOTE SUBJECTIVE: Patient is not able to respond much, but nodding no. Denies any chest pain or shortness of breath by nodding. OBJECTIVE VITAL SIGNS: Temperature 100.4, pulse 106, respiratory rate 18, blood pressure 154/84, oxygen saturation 94% on 3 liters nasal cannula. GENERAL: Resting comfortably in bed, does not appear to be in any acute distress. LUNGS: Clear to auscultation throughout. Diminished anterior lower lobe. No wheezing. No rhonchi or crackles. CARDIOVASCULAR: Regular rate and rhythm. Normal S1, S2. S4 auscultated. ABDOMEN: Soft, nontender. Normoactive bowel sounds. EXTREMITIES: Lower extremities; no edema. CARDIOVASCULAR MEDICATIONS 1. Aspirin 81 mg p.o. daily. 2. Plavix 75 mg p.o. daily. 3. Atorvastatin 40 mg p.o. h.s. 4. Heparin 5000 units subcu q.12 hours. LABS: WBC 16.36, hemoglobin 9.8, hematocrit 30.5, platelets 243. Sodium 150, potassium 3.4, BUN 18, creatinine 0.68, magnesium 1.2. CT of the lungs with no evidence of hilar adenopathy or mass, cardiomegaly with findings of pulmonary interstitial edema, moderate left and small right pleural effusions, scattered solid nodule measuring up to 4 mm, which may be infectious or inflammatory. Followup CT recommended. Findings of prior granulomatous disease with classified pulmonary nodules, hilar lymph nodes, and hepatic splenic granulomas noted. TELEMETRY: Sinus rhythm. ASSESSMENT 1. Coronary artery disease, status post recent coronary intervention. 2. Acute hypoxemic respiratory failure secondary to pneumonia, now extubated. 3. Extended-spectrum beta-lactamase urinary tract infection. 4. Severe sepsis. 5. Alcohol dependence. 6. Medical noncompliance. PLAN: Continue the above-listed cardiac medications. Continue to monitor closely. From a cardiology standpoint, she remains to be stable. Maintain in ICU. We will continue to follow this patient very closely. Dictated by: Tennille Su NP Job#: [id number] [facility]
[2018-08-29] MEDS: ALBUTEROL/IPRATROPIUM 3 ML NEB NEB SCH ×2 (14:40→19:40)
[2018-08-29] MEDS: ATORVASTATIN 40 MG TAB PO SCH (20:39)
[2018-08-30] VITALS (28 sets, daily range): BP systolic 104–171; BP diastolic 53–113
[2018-08-30] MEDS: ALBUTEROL/IPRATROPIUM 3 ML NEB NEB SCH ×4 (00:45→19:15)
[2018-08-30 04:49] LABS: BASOPHILS # (AUTO) 0.1 (0.0-0.1); BASOPHILS % 0.4 % (0.0-1.0); EOSINOPHILS # (AUTO) 0.2 (0.0-0.4); EOSINOPHILS % 1.1 % (0.0-6.0); HEMATOCRIT 30.6 % (34.2-44.1); HEMOGLOBIN 9.9 g/dL (12.0-16.0); LYMPHOCYTES # (AUTO) 0.6 (1.0-3.2); LYMPHOCYTES % 4.2 % (18.0-39.1); MEAN CORPUSCULAR HEMOGLOBIN 29.5 pg (28-32); MEAN CORPUSCULAR HGB CONC 32.4 g/dL (31-35); MEAN CORPUSCULAR VOLUME 91.1 fL (81-99); MONOCYTES # (AUTO) 1.5 (0.2-0.8); MONOCYTES % 9.6 % (4.4-11.3); NEUTROPHILS # (AUTO) 12.8 (2.1-6.9); NEUTROPHILS % 83.9 % (38.7-80.0); PLATELET COUNT 247 x10e3/uL (140-360); RED BLOOD COUNT 3.36 x10e6/uL (3.6-5.1); RED CELL DISTRIBUTION WIDTH 20.8 % (11.7-14.4)
[2018-08-30] MEDS: LEVOTHYROXINE SODIUM 100 MCG TAB PO SCH (05:15)
[2018-08-30] MEDS: LEVOTHYROXINE SODIUM 75 MCG TAB PO SCH (05:15)
[2018-08-30 05:18] LABS: ANION GAP 11.3 mmol/L (8-16); BLOOD UREA NITROGEN 16 mg/dL (7-26); BUN/CREATININE RATIO 28 (6-25); CALCIUM 8.8 mg/dL (8.4-10.2); CARBON DIOXIDE 29 mmol/L (22-29); CHLORIDE 112 mmol/L (98-107); CREATININE, SERUM 0.58 mg/dL (0.57-1.11); EST GLOMERULAR FILTRATION RATE > 60 ML/MIN (60-); GLUCOSE 96 mg/dL (74-118); PHOSPHORUS 3.5 MG/DL (2.3-4.7); POTASSIUM 3.3 mmol/L (3.5-5.1); SODIUM 149 mmol/L (136-145)
[2018-08-30 05:20] LABS: MAGNESIUM 1.1 MG/DL (1.3-2.1)
[2018-08-30] MEDS: FOLIC ACID 1 MG TAB PO SCH (09:44)
[2018-08-30] MEDS: POTASSIUM CHLORIDE 20MEQ/15ML UDC NG PRN (09:45)
[2018-08-30] MEDS: CLOPIDOGREL BISULFATE 75 MG TAB PO SCH (09:45)
[2018-08-30] MEDS: ASPIRIN 81 MG CHEW TAB PO SCH (09:45)
[2018-08-30] MEDS: LOSARTAN POTASSIUM 25 MG TAB PO SCH (09:45)
[2018-08-30] MEDS: THIAMINE HCL 100 MG TAB PO SCH (09:45)
[2018-08-30] MEDS: FERROUS SULFATE 325 MG TAB PO SCH ×2 (09:45→21:52)
[2018-08-30] MEDS: FAMOTIDINE 20 MG TAB PO SCH ×2 (09:45→16:30)
[2018-08-30] MEDS: PANTOPRAZOLE 40 MG 10ML VIAL IV SCH (09:45)
[2018-08-30] MEDS: MULTIVITAMINS/MINERALS TAB PO SCH (09:45)
[2018-08-30] MEDS: HEPARIN SOD (PORCINE) 5,000 UNIT/ML VIAL SC SCH ×2 (09:45→21:53)
[2018-08-30] MEDS: BALSAM PERU/CASTOR OIL 60 GM OINT...G. TP SCH ×2 (10:45→16:08)
[2018-08-30] MEDS: CEFEPIME HCL 1 GM VIAL IV SCH ×2 (10:45→21:56)
[2018-08-30] MEDS: ACETAMINOPHEN 325 MG TAB PO PRN (10:48)
--- NOTE | 2018-08-30 10:58 | Diagnostic Imaging Report ---
EXAMINATION: CHEST SINGLE (PORTABLE) INDICATION: Hypoxia. ^hypoxia ^[id number] ^[id number] COMPARISON: Chest radiograph 08/29/2018 FINDINGS: AP view TUBES and LINES: Right subclavian central venous catheter tip overlies the SVC. Nasogastric tube courses below the gastroesophageal junction. LUNGS/PLEURA: New near complete opacification of the left hemithorax likely representing a combination of pleural effusion and atelectasis. Hazy right basilar opacity likely representing layering effusion, stable. HEART AND MEDIASTINUM: Cardiac silhouette is largely obscured along the left border. Aortic calcifications. BONES AND SOFT TISSUES: No acute osseous lesion. Soft tissues are unremarkable. UPPER ABDOMEN: No free air under the diaphragm. IMPRESSION: New near complete opacification of the left hemithorax likely representing a combination of pleural effusion and atelectasis. Underlying pneumonia not excluded. Stable right pleural effusion. Signed by: DR. Mckinley Hall MD on 08/30/2018 10:54 AM
--- NOTE | 2018-08-30 11:56 | Progress Note ---
DATE: August 30, 2018 CARDIOLOGY PROGRESS NOTE SUBJECTIVE: Patient unable to report this morning. OBJECTIVE VITAL SIGNS: Temperature 98.7, pulse 91, respiratory rate not recorded, blood pressure 120/64, oxygen saturation 91% on 10 liters nasal cannula. GENERAL: Lethargic, unable to respond to questions this morning. Appears to be resting comfortably. NECK: Supple. No JVD noted. LUNGS: Diminished breath sounds throughout with scattered rhonchi and wheezing. CARDIOVASCULAR: Regular rate and rhythm. Normal S1, S2. S4 noted. ABDOMEN: Soft, nontender. Normoactive bowel sounds. EXTREMITIES: Lower extremities; no edema, 2+ pedal pulses. CARDIAC MEDICATIONS 1. Heparin 5000 units subcu q.12 hours. 2. Atorvastatin 40 p.o. h.s. 3. Aspirin 81 p.o. daily. 4. Losartan 12.5 p.o. daily. 5. Plavix 75 p.o. daily. LABS: WBC 15.17, hemoglobin 9.9, hematocrit 30.6, platelets 247. Sodium 149, potassium 3.3, BUN 16, creatinine 0.58, glucose 96, magnesium 1.1, phosphorus 3.5, calcium 8.8. IMAGING: Chest x-ray from yesterday with new worsening bibasilar opacities, likely combination pleural fluid with atelectasis, edema and/or pneumonia. TELEMETRY: Sinus rhythm with PVCs. ASSESSMENT 1. Coronary artery disease, status post recent coronary intervention. 2. Acute hypoxemic respiratory failure secondary to pneumonia, now extubated. 3. Extended-spectrum beta-lactamase urinary tract infection. 4. Severe sepsis. 5. Alcohol dependence. 6. Medical noncompliance. PLAN: Continue the above-listed cardiac medications. Antimicrobial therapy per infectious disease and primary team. Continue to monitor this patient very closely. From a cardiac standpoint, patient is stable and will need continuation of telemetry and the above cardiac medications. Maintain in ICU. Dictated by: Tennille Su NP Job#: [id number] [facility]ANDO
[2018-08-30 13:39] LABS: ABG PCO2 42 mmHg (41-51); ABG PH 7.47 (7.31-7.41)
[2018-08-30 13:40] LABS: ABG HCO3 30 mmol/L (23-28); ABG PO2 51 mmHg (80-105)
[2018-08-30] MEDS: ATORVASTATIN 40 MG TAB PO SCH (21:52)
[2018-08-31] VITALS (27 sets, daily range): BP systolic 76–141; BP diastolic 49–91
[2018-08-31] MEDS: ACETAMINOPHEN 325 MG TAB PO PRN ×2 (00:07→23:29)
[2018-08-31] MEDS: ALBUTEROL/IPRATROPIUM 3 ML NEB NEB SCH ×5 (00:30→23:30)
[2018-08-31 04:29] LABS: BASOPHILS # (AUTO) 0.1 (0.0-0.1); BASOPHILS % 0.3 % (0.0-1.0); EOSINOPHILS # (AUTO) 0.2 (0.0-0.4); EOSINOPHILS % 1.1 % (0.0-6.0); HEMATOCRIT 27.6 % (34.2-44.1); HEMOGLOBIN 9.2 g/dL (12.0-16.0); LYMPHOCYTES # (AUTO) 0.7 (1.0-3.2); LYMPHOCYTES % 4.6 % (18.0-39.1); MEAN CORPUSCULAR HEMOGLOBIN 30.1 pg (28-32); MEAN CORPUSCULAR HGB CONC 33.3 g/dL (31-35); MEAN CORPUSCULAR VOLUME 90.2 fL (81-99); MONOCYTES # (AUTO) 1.7 (0.2-0.8); MONOCYTES % 10.9 % (4.4-11.3); NEUTROPHILS % 82.3 % (38.7-80.0); PLATELET COUNT 268 x10e3/uL (140-360); RED BLOOD COUNT 3.06 x10e6/uL (3.6-5.1); RED CELL DISTRIBUTION WIDTH 21.1 % (11.7-14.4)
[2018-08-31 04:49] LABS: ANION GAP 12.1 mmol/L (8-16); BLOOD UREA NITROGEN 17 mg/dL (7-26); BUN/CREATININE RATIO 29 (6-25); CALCIUM 8.4 mg/dL (8.4-10.2); CARBON DIOXIDE 31 mmol/L (22-29); CHLORIDE 106 mmol/L (98-107); CREATININE, SERUM 0.58 mg/dL (0.57-1.11); EST GLOMERULAR FILTRATION RATE > 60 ML/MIN (60-); GLUCOSE 99 mg/dL (74-118); POTASSIUM 3.1 mmol/L (3.5-5.1); SODIUM 146 mmol/L (136-145)
[2018-08-31] MEDS: LEVOTHYROXINE SODIUM 75 MCG TAB PO SCH (07:50)
[2018-08-31] MEDS: FAMOTIDINE 20 MG TAB PO SCH ×2 (07:50→14:45)
[2018-08-31] MEDS: LEVOTHYROXINE SODIUM 100 MCG TAB PO SCH (07:50)
[2018-08-31] MEDS: ASPIRIN 81 MG CHEW TAB PO SCH (07:50)
[2018-08-31] MEDS: LOSARTAN POTASSIUM 25 MG TAB PO SCH (07:51)
[2018-08-31] MEDS: MULTIVITAMINS/MINERALS TAB PO SCH (07:51)
[2018-08-31] MEDS: FOLIC ACID 1 MG TAB PO SCH (07:51)
[2018-08-31] MEDS: FERROUS SULFATE 325 MG TAB PO SCH ×2 (07:51→20:27)
[2018-08-31] MEDS: THIAMINE HCL 100 MG TAB PO SCH (07:51)
[2018-08-31] MEDS: HEPARIN SOD (PORCINE) 5,000 UNIT/ML VIAL SC SCH ×2 (07:51→20:27)
[2018-08-31] MEDS: CLOPIDOGREL BISULFATE 75 MG TAB PO SCH (07:51)
[2018-08-31] MEDS: BALSAM PERU/CASTOR OIL 60 GM OINT...G. TP SCH ×2 (07:52→14:45)
[2018-08-31] MEDS: PANTOPRAZOLE 40 MG 10ML VIAL IV SCH (07:52)
[2018-08-31] MEDS: POTASSIUM CHLORIDE 20MEQ/15ML UDC NG PRN (09:36)
[2018-08-31] MEDS: CEFEPIME HCL 1 GM VIAL IV SCH ×2 (10:46→22:00)
--- NOTE | 2018-08-31 11:05 | Diagnostic Imaging Report ---
EXAM: Bilateral thoracic ultrasound INDICATION: Pleural effusion COMPARISON: Chest radiograph 08/30/2018. TECHNIQUE: Limited ultrasound of the bilateral thorax was performed to evaluate for the presence of pleural effusion. FINDINGS: Moderate right and large left layering pleural effusions are noted. IMPRESSION: Moderate right and large left pleural effusions as above. Signed by: Dr. Nathaniel Vazquez MD on 08/31/2018 11:02 AM
--- NOTE | 2018-08-31 14:41 | Progress Note ---
DATE: August 31, 2018 CARDIOLOGY PROGRESS NOTE SUBJECTIVE: Patient essentially nonverbal. I cannot obtain a review of systems. The patient in no apparent distress upon entering the room. Per RN no events. OBJECTIVE VITAL SIGNS: Maximal temperature is 100.6. Heart rate is 100. Respirations are 18. Blood pressure is 123/58. Oxygen saturation is 93% on 15 liters via nasal cannula. GENERALLY: She is an elderly woman, appears lethargic, resting comfortably, no apparent distress. NECK: No jugular venous distention. LUNGS: There are diminished breath sounds over the left hemithorax and right base. CARDIOVASCULAR: Regular rate and rhythm. Normal S1 and S2. No murmurs. ABDOMEN: Soft, nontender. Normoactive bowel sounds. EXTREMITIES: No edema, no cyanosis, 2+ pulses. CARDIOVASCULAR MEDICATIONS: Include losartan 12.5 mg p.o. daily, clopidogrel 75 mg p.o. daily, aspirin 81 mg p.o. daily, atorvastatin 40 mg p.o. nightly. All laboratory data reviewed. Ultrasound of the chest shows a moderate right and large left pleural effusion. Echocardiogram showed a technically difficult study with an overall left ventricular systolic function of moderate impairment with a left ventricular ejection fraction of 35% to 40%. ASSESSMENT 1. Coronary artery disease status post percutaneous coronary intervention. 2. Acute hypoxemic respiratory failure. 3. Pneumonia. 4. Pleural effusions. 5. Urinary tract infection. 6. Sepsis. 7. Alcohol dependence. 8. Medical noncompliance. 9. Systolic congestive heart failure. RECOMMENDATIONS: Patient has increasing oxygen requirements on 15 liters nasal cannula. This is likely related to her significant pleural effusions. I will go ahead and start Lasix for diuresis. However, she will likely need thoracentesis given the extent of the pleural effusions. Otherwise, from a cardiovascular standpoint continue current medications. Will defer treatment of her respiratory failure to Pulmonary/Critical Care. In regards to her coronary artery disease, will also continue dual antiplatelet therapy and statin medications. Job#: [id number] KAYLA
[2018-08-31] MEDS: FUROSEMIDE INJ 10 MG/ML 4 ML VIAL IV SCH ×2 (14:45→20:27)
[2018-08-31] MEDS: MORPHINE SULFATE 2 MG/ML SYR IV PRN ×2 (19:54→21:50)
[2018-08-31] MEDS: ATORVASTATIN 40 MG TAB PO SCH (20:27)
[2018-08-31] MEDS: ONDANSETRON HCL INJ 2 MG/ML VIAL IV PRN (20:29)
[2018-09-01] VITALS (19 sets, daily range): BP systolic 64–130; BP diastolic 39–87
[2018-09-01] MEDS: MORPHINE SULFATE 2 MG/ML SYR IV PRN ×4 (00:29→08:30)
[2018-09-01] MEDS: LEVOTHYROXINE SODIUM 100 MCG TAB PO SCH (05:49)
[2018-09-01] MEDS: LEVOTHYROXINE SODIUM 75 MCG TAB PO SCH (05:49)
[2018-09-01] MEDS: ALBUTEROL/IPRATROPIUM 3 ML NEB NEB SCH (07:30)
[2018-09-01] MEDS: PANTOPRAZOLE 40 MG 10ML VIAL IV SCH (07:51)
[2018-09-01] MEDS: FUROSEMIDE INJ 10 MG/ML 4 ML VIAL IV SCH (07:51)
[2018-09-01] MEDS: ASPIRIN 81 MG CHEW TAB PO SCH (07:51)
[2018-09-01] MEDS: FOLIC ACID 1 MG TAB PO SCH (07:51)
[2018-09-01] MEDS: MULTIVITAMINS/MINERALS TAB PO SCH (07:51)
[2018-09-01] MEDS: LOSARTAN POTASSIUM 25 MG TAB PO SCH (07:51)
[2018-09-01] MEDS: THIAMINE HCL 100 MG TAB PO SCH (07:51)
[2018-09-01] MEDS: FERROUS SULFATE 325 MG TAB PO SCH (07:51)
[2018-09-01] MEDS: CLOPIDOGREL BISULFATE 75 MG TAB PO SCH (07:51)
[2018-09-01] MEDS: HEPARIN SOD (PORCINE) 5,000 UNIT/ML VIAL SC SCH (07:52)
[2018-09-01] MEDS: BALSAM PERU/CASTOR OIL 60 GM OINT...G. TP SCH (07:52)
[2018-09-01] MEDS: FAMOTIDINE 20 MG TAB PO SCH (07:53)
[2018-09-01] MEDS: ONDANSETRON HCL INJ 2 MG/ML VIAL IV PRN (08:30)
[2018-09-01] MEDS: CEFEPIME HCL 1 GM VIAL IV SCH (12:07)
--- NOTE | 2018-09-01 14:47 | Progress Note ---
DATE: September 01, 2018 CARDIOLOGY PROGRESS NOTE SUBJECTIVE: Patient is nonverbal. Unable to assess review of systems. Patient has been deemed Hospice care at the present time. OBJECTIVE VITALS: Maximum temperature is 100.8, current temperature is 99.9, heart rate is 99, respirations 20, blood pressure is 86/56, oxygen saturation is 88% on 15 L nasal cannula. GENERAL: She is an ill-appearing woman sleeping. HEENT: Head is normocephalic and atraumatic. NECK: No JVD. CARDIOVASCULAR: She is regular rate and rhythm. No murmurs. LUNGS: Diminished breath sounds over bilateral thoraces. ABDOMEN: Soft and nondistended. EXTREMITIES: Edema. VASCULAR: Diminished pulses. NEUROLOGIC: The patient is lethargic. All medications, laboratory and imaging data were reviewed. ASSESSMENT 1. Coronary artery disease: Status post percutaneous coronary intervention. 2. Uyvrd-po-ailrrwd hypoxemic respiratory failure. 3. Pneumonia. 4. Pleural effusions. 5. Urinary tract infection. 6. Sepsis. 7. Hypotension. 8. Alcohol dependence. 9. Medical noncompliance. 10. Chronic systolic congestive heart failure. RECOMMENDATIONS: Patient received diuresis yesterday with good urine output. Patient has been deemed Hospice care by family and primary teams. Continue current treatment plan. No further cardiovascular workup necessary at this point in time. Continue all current cardiovascular medications. Thank you for the consultation. Stable CV status. The patient is currently Hospice care. Please do not hesitate for any further questions. Job#: [id number] CROW
== END 2018-09-01 14:40 | disposition hospice, inpatient (51) | DRG 870 ==
LOC: ER 20:03 → ERHOLD 08-22 01:04 → ICU 08-22 14:54
PROVIDERS: ADMIT Internal Medicine; ATTEND Internal Medicine
PROC: 5A1955Z Respiratory Ventilation, Greater than 96 Consecutive Hours (ICD-10-PCS; principal; 2018-08-22)
PROC: 0BH17EZ Insertion of Endotracheal Airway into Trachea, Via Natural or Artificial Opening (ICD-10-PCS; 2018-08-22)
PROC: 02HV33Z Insertion of Infusion Device into Superior Vena Cava, Percutaneous Approach (ICD-10-PCS; 2018-08-22)
DX: A41.50 Gram-negative sepsis, unspecified (principal); J96.21 Acute and chronic respiratory failure with hypoxia; J18.9 Pneumonia, unspecified organism; N17.0 Acute kidney failure with tubular necrosis; I50.23 Acute on chronic systolic (congestive) heart failure; G93.41 Metabolic encephalopathy; N30.01 Acute cystitis with hematuria; E87.2 Acidosis; E87.1 Hypo-osmolality and hyponatremia; E86.0 Dehydration; D50.0 Iron deficiency anemia secondary to blood loss (chronic); I48.91 Unspecified atrial fibrillation; E83.42 Hypomagnesemia; E87.6 Hypokalemia; F10.20 Alcohol dependence, uncomplicated; F17.210 Nicotine dependence, cigarettes, uncomplicated; I25.10 Atherosclerotic heart disease of native coronary artery without angina pectoris; Z95.1 Presence of aortocoronary bypass graft; Z85.89 Personal history of malignant neoplasm of other organs and systems; E03.9 Hypothyroidism, unspecified; I48.0 Paroxysmal atrial fibrillation; G62.9 Polyneuropathy, unspecified; R65.20 Severe sepsis without septic shock; D64.9 Anemia, unspecified; Z91.19 Patient's noncompliance with other medical treatment and regimen; B96.89 Other specified bacterial agents as the cause of diseases classified elsewhere; Z16.12 Extended spectrum beta lactamase (ESBL) resistance; K74.60 Unspecified cirrhosis of liver; J44.9 Chronic obstructive pulmonary disease, unspecified; Z66 Do not resuscitate
CPT/HCPCS: 31500; 36415; 36600; 51700; 71045; 71260; 74018; 74176; 76604; 80048; 80053; 80307; 80320; 81001; 82140; 82150; 82550; 82553; 82570; 82728; 82805; 83540; 83605; 83690; 83735; 84100; 84300; 84439; 84443; 84466; 84484; 85025; 85610; 85730; 86850; 86900; 86920; 87040; 87070; 87071; 87086; 87186; 87205; 87493; 93005; 93306; 94002; 94003; 94640; 94667; 94668; 96361; 96372; 97139; 99285; J0692; J0696; J1644; J1940; J2060; J2250; J2270; J2405; J2930; J3411; J3430; J3475; J3480; J7030; J7050; P9016; Q9967